=== PATIENT | female | born 1950 | race Caucasian/White ===

== ENCOUNTER 2016-11-02 15:52 | Inpatient (IN) ==
[2016-11-02] MEDS ORDERED: ACETAMINOPHEN 325 MG TABLET PO PRN (16:05)
[2016-11-02] MEDS ORDERED: DOCUSATE SODIUM 100 MG CAPSULE PO PRN (16:05)
[2016-11-02] MEDS ORDERED: ALBUTEROL/IPRATROPIUM 3 ML NEB RESP TX PRN (16:05)
[2016-11-02] MEDS ORDERED: BENZONATATE 100 MG CAPSULE PO PRN (16:12)
[2016-11-02] MEDS ORDERED: AMINOPHYLLINE 250 MG in SODIUM CHLORIDE 0.9% 100 ML IV ONE (16:12)
--- NOTE | 2016-11-02 16:24 | Pulmonology History & Physical ---
History of Present Illness Chief complaint: acute exacerbation of COPD wheezing SOB outpatient tx failure History of present illness: Donna Marquis, KAYLA-C acting as scribe for Dr. Jose Capone. Ms. Galindo is a 66 year old /White female who was admitted today 11/02/16 from the clinic for acute exacerbation of COPD, shortness of breath, severe wheezing that has been refractory to outpatient treatment. Patient [facility]16 for acute bronchitis exacerbation of COPD cough and wheezing treated with Prednisone and Bactrim DS. Presented back to clinic today to see [facility] with worsening shortness of breath, wheezing, cough, fever, and headaches. She was treated in the clinic with inhalation treatment with Duoneb and patient states has been taking medications as ordered but shortness of breath has gotten progressively worse. Due to her past medical history, severity of her symptoms and inadequate response to outpatient treatment decision was made to admit to inpatient for further evaluation and treatment. ROS: Admits shortness of breath, wheezing, cough, headaches, fever, fatigue, and chills. Denies blurred vision, vertigo/dizziness, cardiac chest pain, syncope, bleeding from any site, and evidence of TIAs. All other ROS is noncontributory. ALLERGIES: NO KNOWN DRUG ALLERGIES Home Medicines: Bactrim DS 800-160mg BID x 10 days, Klonopin 1mg BID PRN, Pepcid 40mg BID, Fenofibrate 160mg daily, Lipitor 40mg qhs, Lisinopril 20mg daily, SlowMag 1 tablet qhs, Norvasc 5mg daily, Prednisone 10mg taper, ProAir HFA 1 puff [id number] as needed, Prozac 40mg daily, Singulair 10mg daily, Tessalon Perles 1-2 capsules TID PRN, Trazodone 100mg qhs, Vitamin D3 1,000 unit daily. Past Medical History: COPD, bronchospastic airway disease, Hypertension, GERD, Chronic sinusitis, Colon polyps, diverticulosis, History of esophageal stricture requiring dilatation, Hiatal hernia, Degenerative joint disease, History of rheumatoid arthritis no longer being treated due to patient refusal of treatments previously has been treated with Methotrexate, low dose steroids, and Humira by Dr. Peña rheumatology, Anxiety, Insomnia, Depression, Obstructive sleep apnea with history of noncompliance with CPap. Past Surgical History: Bilateral cataract removal [place] [address] Campo, appendectomy, hysterectomy in 1983, EGD requiring dilatation, Colonoscopy. Social History: Previous smoker quit in 2010, . Family History: Mother had arthritis and COPD. Father had COPD/Asthma. [place] [facility] [place] normal pulmonary arteries are normal. Increased interstial markings in both bases no fluid or masses. Lab has been reviewed. [place] [facility] [place] WBC 15,500 without a left shift. These is likely related to recent prednisone use but cannot r/o bacterial infection at this time. EKG is pending. Home Medications Medication Instructions Recorded Confirmed Type Atorvastatin [Lipitor] 40 mg PO DAILY 08/01/15 09/06/16 History Lisinopril [Zestril] 20 mg PO DAILY 08/01/15 09/06/16 History Montelukast Tab [Singulair Tab] 1 tablet PO DAILY 08/01/15 09/06/16 History Zolpidem Tartrate [Ambien] 1 tablet PO BEDTIME 08/01/15 09/06/16 History amLODIPine [Norvasc] 1 tablet PO DAILY 08/01/15 09/06/16 History Albuterol Sulfate [Proair HFA] 2 puff INH Q4H PRN 09/06/16 09/06/16 History Cholecalciferol [Vitamin D3] 1,000 unit PO DAILY 09/06/16 09/06/16 History Famotidine 40 mg PO DAILY 09/06/16 09/06/16 History Fenofibrate [Tricor] 160 mg PO DAILY 09/06/16 09/06/16 History clonazePAM TAB [KlonoPIN] 0.5 mg PO BID 09/06/16 09/06/16 History Allergies Allergy/AdvReac Type Severity Reaction Status Date / Time No Known Allergies Allergy Verified 07/26/16 04:01 Medical,Surgical,& Family Hx - Medical History Cardio: History of: Hypertension Endocrine: History of: Dyslipidemia Respiratory: History of: COPD Gastrointestinal: History of: GERD - Surgical History Abdominal Surgeries: Surgical HX of: Appendectomy Reproductive Surgeries: Surgical HX of;: Hysterectomy - Family History Family History: Reports;: Family Hypertension (PARENTS BROTHER), Family Stroke ( DAD) - Social History Smoking Status: Former smoker Exam (Pulmonay) H&P - Constitutional Vitals: Wt 215.6lbs Ht 64in. BP 130/60 o2 sat 93% on room air HR 91 Temp 98.3. Exam: Psych: Oriented x 3; Mood is pleasant and cooperative at present time acutely ill appearing. HEENT: Pupils, irises, sclera, conjunctiva, and eyelids are normal. The face is symmetrical without rash or masses. Lips, tongue, buccal mucosa, soft and hard palates, and pharynx are WNL . Neck: Symmetrical. Thyroid was not palpated. Lymphatics: No submandibular, cervical, or supraclavicular adenopathy Chest: Chest is symmetrical with diffuse high pitched inspiratory and large airway and peripheral wheezes noted. No congestion or stridor. CV: Regular rate and rhythm without murmur or gallop. Arterial: Carotids with a good upstroke. There is no bruit. Upper extremity pulses are palpable. Posterior tibial pulses are palpable. Venous: Exam of the neck, upper, and lower extremities is normal no evidence to suggest deep venous thrombophlebitis. Abd: Abdominal obesity is present, no appreciable organomegaly, tenderness or bruits. Bowel sounds are positive 4. The aorta could not be palpated. /Rectal: Deferred Extremities: No clubbing, cyanosis, or edema. Skin: No cancerous or infectious lesions of the exposed, examined skin; the perineal area was not examined M/S: Mild age-appropriate loss of the normal curvature of the cervical, thoracic , and lumbar spine. Neurological: Cranial nerves are intact with decreased hearing acuity bilaterally. Long-term motor function is intact. Sensory exam was not done. Gait was not tested. The remainder of the exam was noncontributory. Impression: #1 Acute exacerbation of COPD refractory to outpatient treatment #2 Shortness of breath and wheezing not responsive to outpatient therapy. #3 Hypertension #4 Anxiety #5 GERD with history of esophageal stricture #6 See orders. Plan #1 Admit to inpatient for further evaluation and treatment #2 Aminophylline IV loading dose 250mg over 4 hours then at 10mg/hr weight based dosing done this came out to be 0.1mg/kg/hr. #3 Inhalation therapy with Duonebs QID and PRN with acapella, SoluMedrol IV, Merrem 500mg IV q8h, Singulair, Tessalon, and Mucinex as ordered. #4 ID and continue home meds. #5 Labs, EKG, and CXR as ordered. #6 See orders.
[2016-11-02] MEDS: methylPREDNISolone SOD SUC 40 MG/1 ML VIAL IV SCH (18:14)
[2016-11-02] MEDS: MEROPENEM 500 MG in SODIUM CHLORIDE 0.9% 100 ML IV SCH (18:14)
[2016-11-02] MEDS: ALBUTEROL/IPRATROPIUM 3 ML NEB RESP TX SCH (18:57)
[2016-11-02 19:04] LABS: Alanine Aminotransferase 31 U/L (13-56); Albumin 3.8 G/DL (3.4-5.0); Alkaline Phosphatase 91 U/L (45-117); Aspartate Amino Transferase 24 U/L (0-37); Bilirubin,Total < 0.39 MG/DL (0.2-1.0); Blood Urea Nitrogen 53 MG/DL (7-18); Calcium 10.1 MG/DL (8.5-10.1); Glucose 99 MG/DL (74-106); Osmolality,Calculated 277.5 MOS/KG (273-304); Potassium 5.1 MMOL/L (3.5-5.1); Sodium 132 MMOL/L (136-145); Total Protein 7.5 G/DL (6.4-8.3)
[2016-11-02] MEDS: MONTELUKAST 10 MG TABLET PO SCH (21:18)
[2016-11-02] MEDS: FLUoxetine 20 MG CAPSULE PO SCH (21:18)
[2016-11-02] MEDS: traZODone 50 MG TABLET PO SCH (21:18)
[2016-11-02] MEDS: ALBUTEROL 0.4 MG/ML 30 ML/BOTTLE PO SCH (21:18)
[2016-11-03] MEDS: AMINOPHYLLINE 500 MG in SODIUM CHLORIDE 0.9% 480 ML IV SCH (00:59)
[2016-11-03] MEDS: methylPREDNISolone SOD SUC 40 MG/1 ML VIAL IV SCH ×3 (02:03→15:32)
[2016-11-03] MEDS: MEROPENEM 500 MG in SODIUM CHLORIDE 0.9% 100 ML IV SCH ×3 (02:03→21:45)
[2016-11-03] MEDS: clonazePAM 0.5 MG TABLET PO PRN (02:04)
[2016-11-03 03:52] LABS: Apearance,Urine CLEAR (Clear); Bilirubin,Urine Negative (Negative); Blood, Urine Negative (Negative); Glucose,Urine (UA) Negative (Negative); Ketones,Urine Negative (Negative); Mucus,Urine Occasional /LPF (Occasional); Nitrite,Urine Negative (Negative); Protein,Urine Negative; Urine Color Straw (Yellow); Urine Specific Gravity 1.009 (1.001-1.035); Urine Urobilinogen < 2.0 EU/DL (0.2-1.0); WBC,Urine <1 /HPF (0-6)
[2016-11-03 05:24] LABS: Basophils % 0.2 % (0.0-0.8); Hematocrit 34.8 VOL% (35.7-47.0); Hemoglobin 11.4 GM/DL (12.0-16.0); Immature Granulocytes % 1.4 %; Immature Granulocytes Absolute 0.19 #; Lymphocytes % 14.6 % (21.3-54.2); Mean Corpuscular HGB Conc 32.8 GM/DL (32-36); Mean Corpuscular Hemoglobin 29 PG (27-34); Mean Corpuscular Volume 87.7 FL (87-102); Mean Platelet Volume 10.2 FL (9.6-12.0); Monocytes # 0.2 10*3/uL (0.11-0.8); Monocytes % 1.6 % (1.7-12.7); Neutrophils # 11.3 10*3/uL (1.4-7.4); Neutrophils % 82.2 % (38.7-73.9); Platelet Count 391 T/CUMM (130-400); Red Blood Count 3.97 MC/CUMM (3.8-5.5); Red Cell Distribution Width 13.9 % (9.3-17.3); White Blood Count 13.8 T/CUMM (4-12)
[2016-11-03 06:01] LABS: Calcium 9.1 MG/DL (8.5-10.1); Osmolality,Calculated 288.1 MOS/KG (273-304); Potassium 5.1 MMOL/L (3.5-5.1)
[2016-11-03] MEDS: ALBUTEROL 0.4 MG/ML 30 ML/BOTTLE PO SCH ×3 (07:30→21:54)
[2016-11-03] MEDS: ALBUTEROL/IPRATROPIUM 3 ML NEB RESP TX SCH ×4 (07:37→19:17)
--- NOTE | 2016-11-03 07:47 | XRay Report ---
XR chest 2V Indication: SOB Comparison: Chest x-ray dated September 06, 2016 Technique: Frontal and lateral views of the chest Findings: Cardiomediastinal silhouette is stable in configuration. Chronic change of the lungs without focal consolidation, pleural effusion, or pneumothorax. Osseous and surrounding soft tissue structures appear grossly unchanged. IMPRESSION: No acute cardiopulmonary process demonstrated. PROCEDURE INTERPRETED AT [facility] DEPARTMENT OF RADIOLOGY Final Report Signed by: Dr Parish España
[2016-11-03] MEDS: MONTELUKAST 10 MG TABLET PO SCH ×2 (08:35→21:54)
--- NOTE | 2016-11-03 10:54 | Pulmonology Progress Note ---
Pulmonary - PN: Subj Interval history: Obdulio Potter, ANP-BC, GNP-BC, acting as scribe for Dr. Jose Capone Ms. Galindo is a 66-year-old white female who was admitted 11/02/2016 from [facility]. At admission, our impressions were: #1 Acute exacerbation of COPD refractory to outpatient treatment #2 Shortness of breath and wheezing not responsive to outpatient therapy. #3 Hypertension #4 Anxiety #5 GERD with history of esophageal stricture #6 See past history 11/03/2016. Patient's chest x-ray shows no clear-cut infiltrate. She continues to have significant large airway wheeze and congestion. Her previously noted high-pitched peripheral wheezes have improved with the addition of IV Aminophyllin. Today's theophylline level is pending. We will get these daily. She is having difficulty mobilizing her secretions, so we have added Pulmozyme twice a day. Upon questioning, the patient has been experiencing significant reflux and often times up into her throat. She denies consistent solid dysphagia. She has a history of esophageal stricture which has required dilatation in the past and she feels that "it is time for it to be stretched again". We will consult Dr. Peña for consideration of EGD with probable dilatation. She has been placed on a strict antireflux regimen. Sputum Gram stain is pending. Cold agglutinins were negative. Legionella is pending. Medications have been reviewed. Labs been reviewed. White count is 13,800 with 82.2% segs; H&H 11.4/34.8; platelet count 391,000; creatinine 2.10, BUN 54, sodium 135, potassium 5.1, magnesium yesterday was 2.0; liver function tests were within normal limits; calcium 9.1, albumin 3.8, total protein 7.5; TSH and free T4 were normal at 1.330 and 1.09 respectively; urinalysis showed no evidence of infection Exam (Progress Note) - Constitutional Vitals: Period Temp Pulse Resp BP Sys/Aguirre Pulse Ox Last 24 Hr 97.7 F-98.3 F 75-85 16-19 105-137/58-67 94-98 Exam: Chest... See above Heart no gallop Abdomen is nontender and nondistended; bowel sounds are positive 4 Extremities with nothing to suggest acute deep venous thrombophlebitis Psychiatric oriented 3 Neurologic long-term motor function is intact Plan: Consult Dr. Peña as above. Strict antireflux regimen. Continue IV Aminophyllin with daily theophylline levels. Repeat chest x-ray in the morning. Start Pulmozyme twice daily. Daily BMP/magnesium. See orders. Results - Labs CBC & BMP: 11/03/16 05:15 11/03/16 05:15
--- NOTE | 2016-11-03 11:33 | Gastrointestinal Consult Note ---
<Carole Navarro - Last Filed: 11/03/16 11:28> Assessment and Plan (1) Dysphagia Status: Acute Assessment and plan: 11/03-history of esophageal stricture with dilation in the past now presenting with exacerbation of COPD and complaints of increasing reflux and dysphagia to solids and pills. Last known EGD 2004 with dilation. Will follow patient during this hospitalization and plan tentative EGD when respiratory status has improved prior to discharge. Plan an addendum to follow by Dr. Peña. Current Visit: Yes History of Present Illness Chief complaint: Dysphagia/reflux History of present illness: Ms. Galindo is a 66 year old female who was admitted to the hospital on yesterday for acute exacerbation of COPD. Patient is followed by Dr. Capone who manages her COPD. She was seen in clinic last week by KAYLA Larios, for acute bronchitis with onset of coughing and wheezing. She was treated outpatient with prednisone and Bactrim DS however she presented back to the clinic on yesterday with worsening of her symptoms as well as onset of fever. She was then admitted to the hospital for further workup. Patient has a prior history of esophageal stricture, hiatal hernia, GERD, hypertension, DJD, RA, and diverticulosis. She brought forth on admission that she has been having some difficulty with swallowing at times with pills and solids. She states this does not happen every time but it does occur randomly enough to be noticeable. She has a history of esophageal stricture with her last EGD according to our facility database in 2004 in which she had Natalia esophagitis , hiatal hernia and she was also dilated. She does not recall having endoscopy done elsewhere but feels like she has had a more recent dilation in the past. Her last colonoscopy of record was noted in 2006 with diverticulosis and a polyp (tubular adenoma). She denies any pain with swallowing. She also has a history of reflux which she states has not been very controlled with episodes of regurgitation especially at night. She was changed from Nexium a year ago to Pepcid and states this does not work very well. She denies any abdominal pain. Denies any melena or hematochezia. Denies any fever, chills, or weight loss outside of her recent URI. Home Medications Medication Instructions Recorded Confirmed Type Atorvastatin [Lipitor] 40 mg PO DAILY 08/01/15 11/02/16 History Lisinopril [Zestril] 20 mg PO DAILY 08/01/15 11/02/16 History Montelukast Tab [Singulair Tab] 1 tablet PO DAILY 08/01/15 11/02/16 History amLODIPine [Norvasc] 1 tablet PO DAILY 08/01/15 11/02/16 History Albuterol Sulfate [Proair HFA] 2 puff INH Q4H PRN 09/06/16 11/02/16 History Cholecalciferol [Vitamin D3] 1,000 unit PO DAILY 09/06/16 11/02/16 History Famotidine 40 mg PO BID 09/06/16 11/02/16 History Fenofibrate [Tricor] 160 mg PO DAILY 09/06/16 11/02/16 History Albuterol Sulfate [Ventolin HFA] 2 puffs PO Q6HR 11/02/16 11/02/16 History Fluoxetine HCl [Prozac] 40 mg PO DAILY 11/02/16 11/02/16 History Magnesium Chloride [Slow Mag] 1 tablet PO BEDTIME 11/02/16 11/02/16 History traZODone [Desyrel] 100 mg PO BEDTIME 11/02/16 11/02/16 History Allergies Allergy/AdvReac Type Severity Reaction Status Date / Time No Known Allergies Allergy Verified 07/26/16 04:01 Medical,Surgical,& Family Hx - Medical History Cardio: History of: Hypertension Psychological: No history of: Anxiety Disorders, ADHD, Behavior Problems, Bipolar Disorder, Depression, Previous Suicide Attempt, Psychiatric/Substance Abuse Tx, Schizophrenia Endocrine: History of: Dyslipidemia Respiratory: History of: COPD Gastrointestinal: History of: GERD - Surgical History Abdominal Surgeries: Surgical HX of: Appendectomy Reproductive Surgeries: Surgical HX of;: Hysterectomy Orthopedic Surgeries: Surgical HX of;: Total Knee Replacement (bilat) - Family History Family History: Reports;: Family Hypertension (PARENTS BROTHER), Family Stroke ( DAD) - Social History Smoking Status: Former smoker Frequency of Alcohol Use: None Type of Drug Use: None 12 point system: reviewed and no additional remarkable complaints except as stated - Constitutional Constitutional: Present: as per HPI - EENT Eyes: Present: as per HPI Ears: Present: as per HPI Nose, mouth and throat: Present: as per HPI, dysphagia - Cardiovascular Cardiovascular: Present: as per HPI - Respiratory Respiratory: Present: as per HPI, cough, dyspnea, wheezing - Gastrointestinal Gastrointestinal: Present: as per HPI, dyspepsia, dysphagia, heartburn - Genitourinary Genitourinary: Present: as per HPI - Musculoskeletal Musculoskeletal: Present: as per HPI, arthralgias - Neurological Neurological: Present: as per HPI - Psychiatric Psychiatric: Present: as per HPI - Endocrine Endocrine: Present: as per HPI - Hematologic/Lymphatic Hematologic/Lymphatic: Present: as per HPI Exam - Constitutional Vitals: Period Temp Pulse Resp BP Sys/Aguirre Pulse Ox Last 24 Hr 97.7 F-98.3 F 75-85 16-19 105-145/56-67 94-98 General appearance: normal weight, no acute distress - Head Head exam: Present: normal inspection, normocephalic - Eye Eye exam: Present: other (Lids and conjunctive are unremarkable). Absent: scleral icterus - ENT ENT exam: Present: normal exam, normal oropharynx - Neck Neck exam: Present: normal inspection - Respiratory Respiratory exam: Present: clear to auscultation bilaterally. Absent: rales, rhonchi, wheezes - Cardiovascular Cardiovascular exam: Present: regular rate and rhythm. Absent: diastolic murmur , JVD, systolic murmur - GI/Abdominal GI/Abdominal exam: Present: normal bowel sounds, soft. Absent: ascites, distended, mass, organomegaly, tenderness - Extremities Exam Extremities exam: Present: normal inspection, full ROM - Back Exam Back exam: Present: normal inspection - Neurological Exam Neurological exam: Present: alert, oriented X3 - Psychiatric Psychiatric exam: Present: normal affect, normal mood - Skin Skin exam: Present: normal color, warm, dry Results - Labs CBC & BMP: 11/03/16 05:15 11/03/16 05:15 Lab Results: I have reviewed the past 24 hour labs <Golden Peña - Last Filed: 11/03/16 17:55> History of Present Illness History of present illness: Ms. Galindo is a 66 year old female Exam - Constitutional Vitals: Period Temp Pulse Resp BP Sys/Aguirre Pulse Ox Last 24 Hr 97.7 F-99.1 F 75-85 16-19 105-145/56-67 94-99 Results - Labs CBC & BMP: 11/03/16 05:15 11/03/16 05:15
[2016-11-03] MEDS: DORNASE ALFA 2.5 MG/2.5 ML VIAL RESP TX SCH ×2 (11:41→19:11)
[2016-11-03] MEDS: BENZONATATE 100 MG CAPSULE PO SCH ×2 (15:23→21:53)
[2016-11-03] MEDS: traZODone 50 MG TABLET PO SCH (21:51)
[2016-11-03] MEDS: FLUoxetine 20 MG CAPSULE PO SCH (22:05)
[2016-11-04] MEDS: methylPREDNISolone SOD SUC 40 MG/1 ML VIAL IV SCH ×3 (00:51→17:12)
[2016-11-04] MEDS: ALBUTEROL 0.4 MG/ML 30 ML/BOTTLE PO SCH ×3 (06:43→21:35)
[2016-11-04] MEDS: AMINOPHYLLINE 500 MG in SODIUM CHLORIDE 0.9% 480 ML IV SCH ×2 (07:21→07:27)
[2016-11-04 07:30] LABS: Basophils % 0.1 % (0.0-0.8); Hematocrit 36.6 VOL% (35.7-47.0); Immature Granulocytes % 1.4 %; Immature Granulocytes Absolute 0.31 #; Lymphocytes # 1.7 10*3/uL (1.4-4.0); Lymphocytes % 7.7 % (21.3-54.2); Mean Corpuscular HGB Conc 32.8 GM/DL (32-36); Mean Corpuscular Hemoglobin 30 PG (27-34); Mean Corpuscular Volume 89.9 FL (87-102); Monocytes # 0.6 10*3/uL (0.11-0.8); Monocytes % 2.6 % (1.7-12.7); Neutrophils # 19.3 10*3/uL (1.4-7.4); Neutrophils % 88.2 % (38.7-73.9); Platelet Count 431 T/CUMM (130-400); Red Blood Count 4.07 MC/CUMM (3.8-5.5); Red Cell Distribution Width 14.4 % (9.3-17.3); White Blood Count 21.9 T/CUMM (4-12)
[2016-11-04] MEDS: ALBUTEROL/IPRATROPIUM 3 ML NEB RESP TX SCH ×3 (07:30→19:30)
[2016-11-04] MEDS: DORNASE ALFA 2.5 MG/2.5 ML VIAL RESP TX SCH ×2 (07:35→19:30)
[2016-11-04 07:58] LABS: Band Neutrophils 1 % (0-10); Hypochromasia 1+; Lymphocytes 7 % (20-55); Platelet Estimate Adequate; Segmented Neutrophils 89 % (50-85); Total Cells Counted 100
[2016-11-04 08:13] LABS: Calcium 9.1 MG/DL (8.5-10.1); Magnesium 2.3 MG/DL (1.8-2.4); Osmolality,Calculated 291.8 MOS/KG (273-304); Potassium 5.6 MMOL/L (3.5-5.1)
--- NOTE | 2016-11-04 08:59 | Gastrointestinal Progress Note ---
<Carole Navarro - Last Filed: 11/04/16 08:56> Assessment and Plan (1) Dysphagia Status: Acute Assessment and plan: 11/04-No changes at present in dysphagia, reports increased reflux symptoms. Start Protonix at this time. Plan and addendum to follow by DR Peña. 11/03-history of esophageal stricture with dilation in the past now presenting with exacerbation of COPD and complaints of increasing reflux and dysphagia to solids and pills. Last known EGD 2004 with dilation. Will follow patient during this hospitalization and plan tentative EGD when respiratory status has improved prior to discharge. Plan an addendum to follow by Dr. Peña. Current Visit: Yes Gastroenterology - PN: Subj Interval history: CC: Dysphagia Pt is seen, awake and alert sitting up in bed. States she is feeling some better today and feels like she has "turned the corner". She is still having some wheezing and coughing but states it is an improvement. She is tolerating her diet at present time. She is mostly complaining about increased reflux. She is taking nebulizer treatments which can aggrivate her symptoms. She is not on a PPI since admission. Will start her on Protonix at this time. Abdomen is soft , nontender. ROS: Denies SOB or chest pain at present time Exam (Progress Note) - Constitutional Vitals: Period Temp Pulse Resp BP Sys/Aguirre Pulse Ox Last 24 Hr 97.8 F-99.1 F 72-96 16-19 127-148/51-70 95-99 General appearance: normal weight, no acute distress - Head Head exam: Present: normal inspection, normocephalic - Eye Eye exam: Present: other (lids and conjunctiva unremarkable). Absent: scleral icterus - ENT ENT exam: Present: normal exam, normal oropharynx - Neck Neck exam: Present: normal inspection - Respiratory Respiratory exam: Present: clear to auscultation bilaterally. Absent: rales, rhonchi, wheezes - Cardiovascular Cardiovascular exam: Present: regular rate and rhythm. Absent: diastolic murmur , JVD, systolic murmur - GI/Abdominal GI/Abdominal exam: Present: normal bowel sounds, soft. Absent: ascites, distended, mass, organomegaly, tenderness - Extremities Exam Extremities exam: Present: normal inspection, full ROM - Back Exam Back exam: Present: normal inspection - Neurological Exam Neurological exam: Present: alert, oriented X3 - Psychiatric Psychiatric exam: Present: normal affect, normal mood - Skin Skin exam: Present: normal color, warm, dry Results - Labs CBC & BMP: 11/04/16 07:11 11/04/16 07:11 Lab Results: I have reviewed the past 24 hour labs <Golden Peña - Last Filed: 11/04/16 18:38> Exam (Progress Note) - Constitutional Vitals: Period Temp Pulse Resp BP Sys/Aguirre Pulse Ox Last 24 Hr 97.8 F-98.5 F 72-97 18-19 130-148/51-70 95-100 Results - Labs CBC & BMP: 11/04/16 07:11 11/04/16 07:11
--- NOTE | 2016-11-04 09:00 | XRay Report ---
Exam: XR chest 2V Date: 11/04/2016 4:00 AM Indication: COPD Comparison: 11/03/2016 Technical: PA lateral Findings: The heart, lungs, mediastinum and bony structures are intact. A neckless superimposes exam Impression: 1. No acute cardiopulmonary pathology PROCEDURE INTERPRETED AT [facility] DEPARTMENT OF RADIOLOGY Final Report Signed by: Dr. Jose Araujo
[2016-11-04] MEDS: BENZONATATE 100 MG CAPSULE PO SCH ×3 (09:51→21:34)
[2016-11-04] MEDS: MONTELUKAST 10 MG TABLET PO SCH ×2 (09:52→21:34)
[2016-11-04] MEDS: PANTOPRAZOLE 40 MG TABLET PO SCH (09:52)
[2016-11-04] MEDS: MEROPENEM 500 MG in SODIUM CHLORIDE 0.9% 100 ML IV SCH ×2 (09:55→21:37)
--- NOTE | 2016-11-04 10:06 | Pulmonology Progress Note ---
Pulmonary - PN: Subj Interval history: Obdulio Potter, ANP-BC, GNP-BC, acting as scribe for Dr. Jose Capone Ms. Galindo is a 66-year-old white female who was admitted 11/02/2016 from [facility]. At admission, our impressions were: #1 Acute exacerbation of COPD refractory to outpatient treatment #2 Shortness of breath and wheezing not responsive to outpatient therapy. #3 Hypertension #4 Anxiety #5 GERD with history of esophageal stricture #6 See past history 11/03/2016. Patient's chest x-ray shows no clear-cut infiltrate. She continues to have significant large airway wheeze and congestion. Her previously noted high-pitched peripheral wheezes have improved with the addition of IV Aminophyllin. Today's theophylline level is pending. We will get these daily. She is having difficulty mobilizing her secretions, so we have added Pulmozyme twice a day. Upon questioning, the patient has been experiencing significant reflux and often times up into her throat. She denies consistent solid dysphagia. She has a history of esophageal stricture which has required dilatation in the past and she feels that "it is time for it to be stretched again". We will consult Dr. Peña for consideration of EGD with probable dilatation. She has been placed on a strict antireflux regimen. Sputum Gram stain is pending. Cold agglutinins were negative. Legionella is pending. 11/04/16. The patient was seen along with a male family member, Silvano Galindo. She states that she feels her breathing is improved. She continues to have LAW wheezing, but it is certainly improved. There are no high pitched peripheral wheezes. She reports a headache and cervical strain. This is secondary to coughing. We will ask physical therapy to apply moist heat to her cervical spine twice daily. Theophylline level today is again 2.9. Will increase IV Aminophyllin 18 mg/h. She is getting daily theophylline levels. There is a significant amount of large airway congestion. We have asked the patient to be ambulatory and expectorate as much as possible. Chest x-ray is stable. She has been evaluated for possible EGD with Dr. Peña. He would like her respiratory status improved before proceeding with this and we certainly agree. Based on examination today, we have told her we will probably be Tuesday of next week before she is ready for discharge. Sputum Gram stain showed moderate gram-positive cocci in clusters, few gram- positive cocci in pairs and chains, and rare gram-negative rods. Sputum cultures pending. Medications have been reviewed. Increase Aminophyllin as above. Labs been reviewed. White count is 21,900 with 88.2% segs; H&H 12.0/36.6; platelet count 431,000; creatinine has improved to 1.70, BUN 54, sodium 137, potassium 5.6, magnesium 2.3; theophylline level 2.9 Exam (Progress Note) - Constitutional Vitals: Period Temp Pulse Resp BP Sys/Aguirre Pulse Ox Last 24 Hr 97.8 F-99.1 F 72-96 16-19 127-148/51-70 95-99 Exam: Chest... See above Heart no gallop Abdomen is nontender and nondistended; bowel sounds are positive 4 Extremities with nothing to suggest acute deep venous thrombophlebitis Psychiatric oriented 3 Neurologic long-term motor function is intact Plan: Increase IV Aminophyllin 80 mg/h. Continue daily theophylline levels. Moist heat to cervical spine twice daily. Repeat labs in the morning. See orders. Results - Labs CBC & BMP: 11/04/16 07:11 11/04/16 07:11
[2016-11-04] MEDS: traZODone 50 MG TABLET PO SCH (21:33)
[2016-11-04] MEDS: FLUoxetine 20 MG CAPSULE PO SCH (21:34)
[2016-11-05] MEDS: AMINOPHYLLINE 500 MG in SODIUM CHLORIDE 0.9% 480 ML IV SCH (00:51)
[2016-11-05] MEDS: methylPREDNISolone SOD SUC 40 MG/1 ML VIAL IV SCH ×3 (01:06→16:50)
[2016-11-05] MEDS: ALBUTEROL 0.4 MG/ML 30 ML/BOTTLE PO SCH ×2 (06:09→22:00)
[2016-11-05 06:42] LABS: Basophils % 0.1 % (0.0-0.8); Hematocrit 33.9 VOL% (35.7-47.0); Hemoglobin 11.2 GM/DL (12.0-16.0); Immature Granulocytes % 1.4 %; Immature Granulocytes Absolute 0.23 #; Lymphocytes # 1.3 10*3/uL (1.4-4.0); Lymphocytes % 7.9 % (21.3-54.2); Mean Corpuscular Hemoglobin 30 PG (27-34); Mean Corpuscular Volume 89.4 FL (87-102); Mean Platelet Volume 9.9 FL (9.6-12.0); Monocytes # 0.4 10*3/uL (0.11-0.8); Monocytes % 2.7 % (1.7-12.7); Neutrophils # 14.2 10*3/uL (1.4-7.4); Neutrophils % 87.9 % (38.7-73.9); Platelet Count 356 T/CUMM (130-400); Red Blood Count 3.79 MC/CUMM (3.8-5.5); Red Cell Distribution Width 14.6 % (9.3-17.3); White Blood Count 16.1 T/CUMM (4-12)
[2016-11-05] MEDS: ALBUTEROL/IPRATROPIUM 3 ML NEB RESP TX SCH ×4 (06:55→20:02)
[2016-11-05] MEDS: DORNASE ALFA 2.5 MG/2.5 ML VIAL RESP TX SCH ×2 (07:00→20:03)
[2016-11-05 07:12] LABS: Calcium 9.2 MG/DL (8.5-10.1); Magnesium 2.3 MG/DL (1.8-2.4); Osmolality,Calculated 290.5 MOS/KG (273-304); Potassium 5.4 MMOL/L (3.5-5.1)
[2016-11-05] MEDS: MEROPENEM 500 MG in SODIUM CHLORIDE 0.9% 100 ML IV SCH ×2 (08:53→21:43)
[2016-11-05] MEDS: PANTOPRAZOLE 40 MG TABLET PO SCH (08:56)
[2016-11-05] MEDS: BENZONATATE 100 MG CAPSULE PO SCH ×3 (08:56→22:01)
[2016-11-05] MEDS: MONTELUKAST 10 MG TABLET PO SCH ×2 (08:57→21:43)
--- NOTE | 2016-11-05 09:37 | Gastrointestinal Progress Note ---
<Carole Navarro - Last Filed: 11/05/16 09:35> Assessment and Plan (1) Dysphagia Status: Acute Assessment and plan: 11/05-no changes at present time. Respiratory status slowly improving. Start nystatin swish and swallow for oral discomfort/erythema. Plan for EGD on Tuesday if patient continues to improve and respiratory status is stable. Plan an addendum to follow by Dr. Peña 11/04-No changes at present in dysphagia, reports increased reflux symptoms. Start Protonix at this time. Plan and addendum to follow by DR Peña. 11/03-history of esophageal stricture with dilation in the past now presenting with exacerbation of COPD and complaints of increasing reflux and dysphagia to solids and pills. Last known EGD 2004 with dilation. Will follow patient during this hospitalization and plan tentative EGD when respiratory status has improved prior to discharge. Plan an addendum to follow by Dr. Peña. Current Visit: Yes Gastroenterology - PN: Subj Interval history: CC: Dysphagia Patient is seen awake and alert ambulating around room. States she is feeling some better today and that her breathing has improved more since yesterday. Tolerating her diet at this time. She is complaining of some mouth pain and noted to have some oral erythema and possible small tiny ulcerations developing on the inside of her mouth. She states she did not have this prior to admission and feels like it could be related to her breathing treatments or antibiotics. Abdomen soft, nontender. We will tentatively plan at this time to proceed with EGD on Tuesday if patient's breathing continues to improve over the weekend and she is stable. We will also order some nystatin mouthwash for the oral discomfort. ROS: Denies shortness of breath or chest pain Exam (Progress Note) - Constitutional Vitals: Period Temp Pulse Resp BP Sys/Aguirre Pulse Ox Last 24 Hr 97.0 F-98.6 F 75-97 16-19 120-157/59-89 92-100 General appearance: normal weight, no acute distress - Head Head exam: Present: normal inspection, normocephalic - Eye Eye exam: Present: other (Lids and conjunctivae). Absent: scleral icterus - ENT ENT exam: Present: normal exam - Neck Neck exam: Present: normal inspection - Respiratory Respiratory exam: Present: clear to auscultation bilaterally. Absent: rales, rhonchi, wheezes - Cardiovascular Cardiovascular exam: Present: regular rate and rhythm. Absent: diastolic murmur , JVD, systolic murmur - GI/Abdominal GI/Abdominal exam: Present: normal bowel sounds, soft. Absent: ascites, distended, mass, organomegaly, tenderness - Extremities Exam Extremities exam: Present: normal inspection, full ROM - Back Exam Back exam: Present: normal inspection - Neurological Exam Neurological exam: Present: alert, oriented X3 - Psychiatric Psychiatric exam: Present: normal affect, normal mood - Skin Skin exam: Present: normal color, warm, dry Results - Labs CBC & BMP: 11/05/16 06:16 11/05/16 06:16 Lab Results: I have reviewed the past 24 hour labs <Golden Peña - Last Filed: 11/05/16 14:07> Exam (Progress Note) - Constitutional Vitals: Period Temp Pulse Resp BP Sys/Aguirre Pulse Ox Last 24 Hr 97.0 F-98.6 F 74-97 16-20 120-157/59-89 92-99 Results - Labs CBC & BMP: 11/05/16 06:16 11/05/16 06:16
[2016-11-05] MEDS: hydroCHLOROthiazide 12.5 MG CAPSULE PO SCH (11:20)
[2016-11-05] MEDS: FLUCONAZOLE 100 MG TABLET PO SCH (11:20)
--- NOTE | 2016-11-05 11:49 | Pulmonology Progress Note ---
Pulmonary - PN: Subj Interval history: Obdulio Potter, ANP-BC, GNP-BC, acting as scribe for Dr. Jose Capone Ms. Galindo is a 66-year-old white female who was [facility]. At admission, our impressions were: #1 Acute exacerbation of COPD refractory to outpatient treatment #2 Shortness of breath and wheezing not responsive to outpatient therapy. #3 Hypertension #4 Anxiety #5 GERD with history of esophageal stricture #6 See past history 11/03/2016. Patient's chest x-ray shows no clear-cut infiltrate. She continues to have significant large airway wheeze and congestion. Her previously noted high-pitched peripheral wheezes have improved with the addition of IV Aminophyllin. Today's theophylline level is pending. We will get these daily. She is having difficulty mobilizing her secretions, so we have added Pulmozyme twice a day. Upon questioning, the patient has been experiencing significant reflux and often times up into her throat. She denies consistent solid dysphagia. She has a history of esophageal stricture which has required dilatation in the past and she feels that "it is time for it to be stretched again". We will consult Dr. Peña for consideration of EGD with probable dilatation. She has been placed on a strict antireflux regimen. Sputum Gram stain is pending. Cold agglutinins were negative. Legionella is pending. 11/04/16. The patient was seen along with a male family member, Silvano Galindo. She states that she feels her breathing is improved. She continues to have LAW wheezing, but it is certainly improved. There are no high pitched peripheral wheezes. She reports a headache and cervical strain. This is secondary to coughing. We will ask physical therapy to apply moist heat to her cervical spine twice daily. Theophylline level today is again 2.9. Will increase IV Aminophyllin 18 mg/h. She is getting daily theophylline levels. There is a significant amount of large airway congestion. We have asked the patient to be ambulatory and expectorate as much as possible. Chest x-ray is stable. She has been evaluated for possible EGD with Dr. Peña. He would like her respiratory status improved before proceeding with this and we certainly agree. Based on examination today, we have told her we will probably be Tuesday of next week before she is ready for discharge. Sputum Gram stain showed moderate gram-positive cocci in clusters, few gram- positive cocci in pairs and chains, and rare gram-negative rods. Sputum cultures pending. 11/04/2016. The patient was seen today along with a female family member and Karin Armas RN. She continues to do well. On chest exam, however, she continues to have high-pitched peripheral wheezes at the end of expiration more prominent in the bases. She is on IV Aminophyllin and we will increase her dose to 24 mgL/h. Theophylline level today is 5.0. She is getting daily theophylline levels. She complains of oral ulcers. On evaluation, patient has oral candidiasis. Will start Magic mouthwash as needed and Diflucan daily. She has hypernatremia. Review of medications does not show an obvious culprit. Will start hydrochlorothiazide 12.5 mg daily. She is being evaluated for possible EGD on Tuesday by Dr. Peña. Medications have been reviewed. Labs been reviewed. White count is 16,100 with 87.9% segs; H&H 11.2/33.9; platelet count 356,000; creatinine 1.40, BUN 43, sodium 139, potassium 5.4, magnesium 2.3; theophylline level 5.0 Exam (Progress Note) - Constitutional Vitals: Period Temp Pulse Resp BP Sys/Aguirre Pulse Ox Last 24 Hr 97.0 F-98.6 F 74-97 16-20 120-157/59-89 92-100 Exam: Chest... See above Heart no gallop Abdomen is nontender and nondistended; bowel sounds are positive 4 Extremities with nothing to suggest acute deep venous thrombophlebitis Psychiatric oriented 3 Neurologic long-term motor function is intact Plan: Increase IV Aminophyllin 24 mg/h. Continue daily theophylline levels. Diflucan. Magic mouthwash. Hydrochlorothiazide. See orders. Results - Labs CBC & BMP: 11/05/16 06:16 11/05/16 06:16
[2016-11-05] MEDS: NYSTATIN 500,000 UNIT/5 ML UDCUP SWISH/SWAL SCH ×3 (13:06→21:43)
[2016-11-05] MEDS: FLUoxetine 20 MG CAPSULE PO SCH (21:43)
[2016-11-05] MEDS: traZODone 50 MG TABLET PO SCH (21:44)
[2016-11-05] MEDS: MYLANTA/LIDO VISC 2:1 300 ML BOTTLE SWISH/SPIT PRN (22:00)
[2016-11-06] MEDS: methylPREDNISolone SOD SUC 40 MG/1 ML VIAL IV SCH ×4 (00:32→23:40)
[2016-11-06] MEDS: ALBUTEROL/IPRATROPIUM 3 ML NEB RESP TX SCH ×4 (08:31→15:50)
[2016-11-06] MEDS: DORNASE ALFA 2.5 MG/2.5 ML VIAL RESP TX SCH ×2 (08:32→19:33)
[2016-11-06] MEDS: AMINOPHYLLINE 500 MG in SODIUM CHLORIDE 0.9% 480 ML IV SCH ×3 (09:48→23:43)
[2016-11-06] MEDS: FLUCONAZOLE 100 MG TABLET PO SCH (09:51)
[2016-11-06] MEDS: MONTELUKAST 10 MG TABLET PO SCH ×2 (09:51→21:17)
[2016-11-06] MEDS: PANTOPRAZOLE 40 MG TABLET PO SCH (09:51)
[2016-11-06] MEDS: BENZONATATE 100 MG CAPSULE PO SCH ×3 (09:51→21:17)
[2016-11-06] MEDS: hydroCHLOROthiazide 12.5 MG CAPSULE PO SCH (09:51)
[2016-11-06] MEDS: NYSTATIN 500,000 UNIT/5 ML UDCUP SWISH/SWAL SCH ×4 (09:57→21:23)
[2016-11-06] MEDS: ALBUTEROL 0.4 MG/ML 30 ML/BOTTLE PO SCH ×3 (10:02→12:59)
[2016-11-06] MEDS: MEROPENEM 500 MG in SODIUM CHLORIDE 0.9% 100 ML IV SCH ×2 (10:03→21:18)
--- NOTE | 2016-11-06 18:46 | Pulmonology Progress Note ---
Pulmonary - PN: Subj Interval history: 66-year-old female admitted for COPD exacerbation. Patient did well overnight without acute issues. She admits to slow continued improvement over her hospitalization. No new concerns today. Exam (Progress Note) - Constitutional Vitals: Period Temp Pulse Resp BP Sys/Aguirre Pulse Ox Last 24 Hr 97.7 F-98.8 F 76-93 16-20 119-170/65-80 93-100 General appearance: over weight - Head Head exam: Present: normal inspection - Eye Eye exam: Present: EOMI Pupils: Present: ANDREAS - Neck Neck exam: Present: normal inspection - Respiratory Respiratory exam: Present: rhonchi, wheezes. Absent: accessory muscle use - Cardiovascular Cardiovascular exam: Present: regular rate and rhythm - GI/Abdominal GI/Abdominal exam: Present: normal bowel sounds, soft. Absent: tenderness - Extremities Exam Extremities exam: Present: normal inspection. Absent: edema - Neurological Exam Neurological exam: Present: alert, oriented X3 - Psychiatric Psychiatric exam: Present: normal affect, normal mood - Skin Skin exam: Present: warm, dry Results - Labs CBC & BMP: 11/05/16 06:16 11/05/16 06:16 Assessment and Plan (1) COPD exacerbation Status: Acute Assessment and plan: 66-year-old female admitted with COPD exacerbation who has had slow continued improvement over the course of her hospital stay with steroids, bronchodilators , and antibiotics. Continue current management. Current Visit: No (2) Dysphagia Status: Acute Assessment and plan: GI plans for EGD on Tuesday for further evaluation. N.p.o. after midnight tomorrow. Current Visit: Yes
[2016-11-06] MEDS ORDERED: LEVALBUTEROL 1.25 MG/3 ML NEB RESP TX PRN (18:50)
[2016-11-06] MEDS: LEVALBUTEROL 1.25 MG/3 ML NEB RESP TX SCH (19:21)
[2016-11-06] MEDS: IPRATROPIUM 500 MCG/2.5 ML NEB RESP TX SCH (19:21)
[2016-11-06] MEDS: traZODone 50 MG TABLET PO SCH (21:16)
[2016-11-06] MEDS: FLUoxetine 20 MG CAPSULE PO SCH (21:17)
[2016-11-06] MEDS: MYLANTA/LIDO VISC 2:1 300 ML BOTTLE SWISH/SPIT PRN (21:18)
[2016-11-06] MEDS: diphenhydrAMINE CAP 25 MG CAPSULE PO PRN (23:40)
[2016-11-07] MEDS: LEVALBUTEROL 1.25 MG/3 ML NEB RESP TX SCH ×4 (01:37→19:45)
[2016-11-07] MEDS: IPRATROPIUM 500 MCG/2.5 ML NEB RESP TX SCH ×4 (01:37→19:39)
[2016-11-07] MEDS: AMINOPHYLLINE 500 MG in SODIUM CHLORIDE 0.9% 480 ML IV SCH (05:53)
[2016-11-07 07:07] LABS: Basophils % 0.1 % (0.0-0.8); Hematocrit 37.6 VOL% (35.7-47.0); Hemoglobin 12.2 GM/DL (12.0-16.0); Immature Granulocytes % 2.7 %; Immature Granulocytes Absolute 0.37 #; Lymphocytes # 1.5 10*3/uL (1.4-4.0); Lymphocytes % 10.7 % (21.3-54.2); Mean Corpuscular HGB Conc 32.4 GM/DL (32-36); Mean Corpuscular Hemoglobin 29 PG (27-34); Mean Corpuscular Volume 88.1 FL (87-102); Mean Platelet Volume 9.7 FL (9.6-12.0); Monocytes # 0.7 10*3/uL (0.11-0.8); Neutrophils % 81.5 % (38.7-73.9); Platelet Count 426 T/CUMM (130-400); Red Blood Count 4.27 MC/CUMM (3.8-5.5); Red Cell Distribution Width 14.4 % (9.3-17.3); White Blood Count 13.5 T/CUMM (4-12)
[2016-11-07 07:36] LABS: Calcium 9.1 MG/DL (8.5-10.1); Magnesium 2.3 MG/DL (1.8-2.4); Osmolality,Calculated 282.8 MOS/KG (273-304); Potassium 4.6 MMOL/L (3.5-5.1)
[2016-11-07] MEDS: DORNASE ALFA 2.5 MG/2.5 ML VIAL RESP TX SCH ×2 (08:03→19:50)
[2016-11-07] MEDS: BENZONATATE 100 MG CAPSULE PO SCH ×3 (09:03→22:14)
[2016-11-07] MEDS: NYSTATIN 500,000 UNIT/5 ML UDCUP SWISH/SWAL SCH ×4 (09:03→22:15)
[2016-11-07] MEDS: PANTOPRAZOLE 40 MG TABLET PO SCH (09:03)
[2016-11-07] MEDS: FLUCONAZOLE 100 MG TABLET PO SCH (09:04)
[2016-11-07] MEDS: MEROPENEM 500 MG in SODIUM CHLORIDE 0.9% 100 ML IV SCH ×2 (09:04→22:08)
[2016-11-07] MEDS: methylPREDNISolone SOD SUC 40 MG/1 ML VIAL IV SCH ×2 (09:04→16:18)
[2016-11-07] MEDS: MONTELUKAST 10 MG TABLET PO SCH ×2 (09:04→22:15)
[2016-11-07] MEDS: hydroCHLOROthiazide 12.5 MG CAPSULE PO SCH (09:05)
--- NOTE | 2016-11-07 17:46 | Pulmonology Progress Note ---
Pulmonary - PN: Subj Interval history: 66-year-old female admitted for COPD exacerbation. Patient did well overnight without acute issues. She admits to slow continued improvement over her hospitalization. Her main residual complaint today is of chronic cough. She admits to associated postnasal drip as well as reflux, for which she will be undergoing EGD tomorrow. Exam (Progress Note) - Constitutional Vitals: Period Temp Pulse Resp BP Sys/Aguirre Pulse Ox Last 24 Hr 97.0 F-98.3 F 76-92 16-25 158-173/64-86 95-99 General appearance: over weight - Head Head exam: Present: normal inspection - Eye Eye exam: Present: EOMI Pupils: Present: ANDREAS - Neck Neck exam: Present: normal inspection - Respiratory Respiratory exam: Present: clear to auscultation bilaterally. Absent: rales, rhonchi, wheezes - Cardiovascular Cardiovascular exam: Present: regular rate and rhythm - GI/Abdominal GI/Abdominal exam: Present: normal bowel sounds, soft. Absent: tenderness - Extremities Exam Extremities exam: Present: normal inspection - Neurological Exam Neurological exam: Present: alert, oriented X3 - Psychiatric Psychiatric exam: Present: normal affect, normal mood - Skin Skin exam: Present: warm, dry Results - Labs CBC & BMP: 11/07/16 06:57 11/07/16 06:57 Assessment and Plan (1) COPD exacerbation Status: Acute Assessment and plan: 66-year-old female admitted with COPD exacerbation who has had slow continued improvement over the course of her hospital stay with steroids, bronchodilators , and antibiotics. Continue current management. Current Visit: No (2) Dysphagia Status: Acute Assessment and plan: GI plans for EGD on Tuesday for further evaluation. N.p.o. after midnight tonight. Current Visit: Yes (3) Post-nasal drip Status: Acute Assessment and plan: Likely also contributing to her chronic cough. Will start her on Flonase and Zyrtec. Current Visit: Yes
[2016-11-07] MEDS: FLUoxetine 20 MG CAPSULE PO SCH (22:12)
[2016-11-07] MEDS: CETIRIZINE 10 MG TABLET PO SCH (22:13)
[2016-11-07] MEDS: traZODone 50 MG TABLET PO SCH (22:14)
[2016-11-07] MEDS: diphenhydrAMINE CAP 25 MG CAPSULE PO PRN (22:15)
[2016-11-07] MEDS: FLUTICASONE 50 MCG NASAL SPRAY 16 GM BOTTLE BOTH NARES SCH (22:16)
[2016-11-08] MEDS: IPRATROPIUM 500 MCG/2.5 ML NEB RESP TX SCH ×4 (00:36→19:13)
[2016-11-08] MEDS: LEVALBUTEROL 1.25 MG/3 ML NEB RESP TX SCH ×4 (00:36→19:13)
[2016-11-08] MEDS: methylPREDNISolone SOD SUC 40 MG/1 ML VIAL IV SCH ×3 (00:42→17:33)
[2016-11-08] MEDS: AMINOPHYLLINE 500 MG in SODIUM CHLORIDE 0.9% 480 ML IV SCH ×2 (01:19→23:43)
[2016-11-08] MEDS: DORNASE ALFA 2.5 MG/2.5 ML VIAL RESP TX SCH ×2 (07:31→19:13)
[2016-11-08 07:50] LABS: Calcium 9.2 MG/DL (8.5-10.1); Magnesium 2.2 MG/DL (1.8-2.4); Osmolality,Calculated 287.5 MOS/KG (273-304); Potassium 4.6 MMOL/L (3.5-5.1)
[2016-11-08] MEDS: MEROPENEM 500 MG in SODIUM CHLORIDE 0.9% 100 ML IV SCH ×2 (08:28→20:31)
[2016-11-08 08:41] LABS: Basophils % 0.1 % (0.0-0.8); Hematocrit 38.3 VOL% (35.7-47.0); Hemoglobin 12.9 GM/DL (12.0-16.0); Immature Granulocytes % 2.4 %; Immature Granulocytes Absolute 0.37 #; Lymphocytes # 1.6 10*3/uL (1.4-4.0); Lymphocytes % 10.4 % (21.3-54.2); Mean Corpuscular HGB Conc 33.7 GM/DL (32-36); Mean Corpuscular Hemoglobin 30 PG (27-34); Mean Platelet Volume 9.6 FL (9.6-12.0); Monocytes # 0.9 10*3/uL (0.11-0.8); Monocytes % 5.9 % (1.7-12.7); NRBC # 0.03 10*3/uL; Neutrophils # 12.4 10*3/uL (1.4-7.4); Neutrophils % 81.2 % (38.7-73.9); Platelet Count 422 T/CUMM (130-400); Red Blood Count 4.35 MC/CUMM (3.8-5.5); White Blood Count 15.3 T/CUMM (4-12)
[2016-11-08] MEDS ORDERED: LIDOCAINE 1% 5 ML VIAL ONE (10:53)
[2016-11-08] MEDS ORDERED: PROPOFOL 200 MG/20 ML VIAL IV ONE (10:53)
--- NOTE | 2016-11-08 11:06 | History and Physical Update ---
History and Physical Update - Physical Exam Mental Status: alert and oriented Heart: regular rate and rhythm Lung: clear to auscultation Abdomen: within normal limits Vitals: within normal limits
--- NOTE | 2016-11-08 11:09 | Operative Note ---
Date of procedure: 11/08/16 Pre-op diagnosis: Dysphagia Procedure: EGD with biopsy and esophageal dilatation 66-year-old female with complaints of dysphagia now for upper endoscopy to further evaluate. She has had COPD about expansion which is improved. Informed several times the patient She was sedated with MAC anesthesia per anesthesia protocol. Patient was placed in left lateral decubitus position the Olympus flexible video upper endoscope was inserted into the oral cavity under direct vision the esophagus intubated. Findings: Esophagus-normal proximal mid esophageal mucosa distal esophagus small hiatal hernia with one column of suspect Rodriguez's change from approximately 36 cm to 38 cm. Biopsies were taken. There is an associated distal esophageal stricture. Stomach-normal insufflation normal mucosa to direct retroflexed views of the body, fundus, cardia and antrum the stomach. Pylorus-normal Duodenum-normal bulb duodenum to the third portion of the duodenum. The scope was removed subsequently a 54 [place] was passed Brown was passed without difficulty. No significant resistant no blood was present on the dilator postdilatation. Patient our procedure well she is discharged recovery in good condition Postop diagnosis: 1. Gastroesophageal reflux disease-continue PPI treatment antireflux precautions 2. Continue PPI treatment. 3. 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 And no dysplasia will need a repeat endoscopy in 18 months. Anesthesia: MAC Surgeon / Physician: Golden Peña Estimated blood loss: none Specimens: none sent Condition: stable Disposition: post procedure unit Results - Labs CBC & BMP: 11/08/16 08:27 11/08/16 06:58 Discharge Plan - Discharge Medications No Action Atorvastatin [Lipitor] 40 mg PO DAILY amLODIPine [Norvasc] 1 tablet PO DAILY Lisinopril [Zestril] 20 mg PO DAILY Montelukast Tab [Singulair Tab] 1 tablet PO DAILY Famotidine 40 mg PO BID Fenofibrate [Tricor] 160 mg PO DAILY Cholecalciferol [Vitamin D3] 1,000 unit PO DAILY Fluoxetine HCl [Prozac] 40 mg PO DAILY traZODone [Desyrel] 100 mg PO BEDTIME Albuterol Sulfate [Ventolin HFA] 2 puffs PO Q6HR Albuterol Sulfate [Proair HFA] 2 puff INH Q4H PRN PRN Reason: Shortness Of Breath/Wheezing Magnesium Chloride [Slow Mag] 1 tablet PO BEDTIME - Follow Up or Referral - Forms/Instructions
--- NOTE | 2016-11-08 11:26 | Anesthesia Post-Op ---
Anesthesia Post OP - Post Ansesthetic Evaluation Patient seen in post op: Yes Resp: within normal limits CV: within normal limits Mental: within normal limits Temp: within normal limits [id number]: within normal limits Nausea and Vomiting: within normal limits Pain: within normal limits
--- NOTE | 2016-11-08 11:30 | Pulmonology Progress Note ---
Pulmonary - PN: Subj Interval history: Obdulio Potter, ANP-BC, GNP-BC, acting as scribe for Dr. Jose Capone Ms. Galindo is a 66-year-old white female who was admitted 11/02/2016 from [facility]. At admission, our impressions were: #1 Acute exacerbation of COPD refractory to outpatient treatment #2 Shortness of breath and wheezing not responsive to outpatient therapy. #3 Hypertension #4 Anxiety #5 GERD with history of esophageal stricture #6 See past history 11/03/2016. Patient's chest x-ray shows no clear-cut infiltrate. She continues to have significant large airway wheeze and congestion. Her previously noted high-pitched peripheral wheezes have improved with the addition of IV Aminophyllin. Today's theophylline level is pending. We will get these daily. She is having difficulty mobilizing her secretions, so we have added Pulmozyme twice a day. Upon questioning, the patient has been experiencing significant reflux and often times up into her throat. She denies consistent solid dysphagia. She has a history of esophageal stricture which has required dilatation in the past and she feels that "it is time for it to be stretched again". We will consult Dr. Peña for consideration of EGD with probable dilatation. She has been placed on a strict antireflux regimen. Sputum Gram stain is pending. Cold agglutinins were negative. Legionella is pending. 11/04/16. The patient was seen along with a male family member, Silvano Galindo. She states that she feels her breathing is improved. She continues to have LAW wheezing, but it is certainly improved. There are no high pitched peripheral wheezes. She reports a headache and cervical strain. This is secondary to coughing. We will ask physical therapy to apply moist heat to her cervical spine twice daily. Theophylline level today is again 2.9. Will increase IV Aminophyllin 18 mg/h. She is getting daily theophylline levels. There is a significant amount of large airway congestion. We have asked the patient to be ambulatory and expectorate as much as possible. Chest x-ray is stable. She has been evaluated for possible EGD with Dr. Peña. He would like her respiratory status improved before proceeding with this and we certainly agree. Based on examination today, we have told her we will probably be Tuesday of next week before she is ready for discharge. Sputum Gram stain showed moderate gram-positive cocci in clusters, few gram- positive cocci in pairs and chains, and rare gram-negative rods. Sputum cultures pending. 11/05/2016. The patient was seen today along with a female family member and Karin Armas RN. She continues to do well. On chest exam, however, she continues to have high-pitched peripheral wheezes at the end of expiration more prominent in the bases. She is on IV Aminophyllin and we will increase her dose to 24 mgL/h. Theophylline level today is 5.0. She is getting daily theophylline levels. She complains of oral ulcers. On evaluation, patient has oral candidiasis. Will start Magic mouthwash as needed and Diflucan daily. She has hypernatremia. Review of medications does not show an obvious culprit. Will start hydrochlorothiazide 12.5 mg daily. She is being evaluated for possible EGD on Tuesday by Dr. Peña. 11/08/2016. The patient was seen today while in the GI suite undergoing EGD. This was discussed with Dr. Peña. EGD showed gastroesophageal reflux disease and possible Rodriguez's esophagitis. Biopsies were taken and are pending. Dr. Peña recommended continuing PPI treatment and antireflux precautions. There was a distal esophageal stricture which was dilated. Medications have been reviewed. We made no changes today. Labs been reviewed. White count is 15,300 with 81.2% segs; H&H 12.9/38.3; platelet count 422,000; creatinine 1.30, BUN 33, electrolytes are normal; theophylline level 7.2 Exam (Progress Note) - Constitutional Vitals: Period Temp Pulse Resp BP Sys/Aguirre Pulse Ox Last 24 Hr 96.2 F-98.5 F 81-96 14-20 138-191/67-97 93-99 Exam: Chest with markedly less wheeze Heart no gallop Abdomen is nontender and nondistended; bowel sounds are positive 4 Extremities with nothing to suggest acute deep venous thrombophlebitis Psychiatric/neurologic unable to be determined presently secondary to sedation for EGD Plan: Follow-up biopsy results when available. Continue present treatment. If she does well the remainder of today and tomorrow morning, it is possible she could be ready for discharge tomorrow. Results - Labs CBC & BMP: 11/08/16 08:27 11/08/16 06:58
[2016-11-08] MEDS: hydroCHLOROthiazide 12.5 MG CAPSULE PO SCH (13:03)
[2016-11-08] MEDS: NYSTATIN 500,000 UNIT/5 ML UDCUP SWISH/SWAL SCH ×4 (13:03→20:32)
[2016-11-08] MEDS: PANTOPRAZOLE 40 MG TABLET PO SCH (13:04)
[2016-11-08] MEDS: CETIRIZINE 10 MG TABLET PO SCH (13:04)
[2016-11-08] MEDS: BENZONATATE 100 MG CAPSULE PO SCH ×3 (13:04→20:32)
[2016-11-08] MEDS: MONTELUKAST 10 MG TABLET PO SCH ×2 (13:04→20:32)
[2016-11-08] MEDS: FLUTICASONE 50 MCG NASAL SPRAY 16 GM BOTTLE BOTH NARES SCH (13:04)
[2016-11-08] MEDS: FLUCONAZOLE 100 MG TABLET PO SCH (13:04)
[2016-11-08] MEDS: traZODone 50 MG TABLET PO SCH (20:32)
[2016-11-08] MEDS: clonazePAM 0.5 MG TABLET PO PRN (20:32)
[2016-11-08] MEDS: FLUoxetine 20 MG CAPSULE PO SCH (20:32)
[2016-11-09] MEDS: IPRATROPIUM 500 MCG/2.5 ML NEB RESP TX SCH ×2 (00:34→07:19)
[2016-11-09] MEDS: LEVALBUTEROL 1.25 MG/3 ML NEB RESP TX SCH ×2 (00:34→07:19)
[2016-11-09] MEDS: methylPREDNISolone SOD SUC 40 MG/1 ML VIAL IV SCH ×3 (01:20→16:52)
[2016-11-09] MEDS: DORNASE ALFA 2.5 MG/2.5 ML VIAL RESP TX SCH ×2 (07:19→19:23)
--- NOTE | 2016-11-09 08:55 | Gastrointestinal Progress Note ---
<Carole Navarro - Last Filed: 11/09/16 08:53> Assessment and Plan (1) Dysphagia Status: Acute Assessment and plan: 11/09-dysphagia improved post dilation on yesterday. Esophageal biopsy pending. Plan an addendum to follow by Dr. Peña. 11/05-no changes at present time. Respiratory status slowly improving. Start nystatin swish and swallow for oral discomfort/erythema. Plan for EGD on Tuesday if patient continues to improve and respiratory status is stable. Plan an addendum to follow by Dr. Peña 11/04-No changes at present in dysphagia, reports increased reflux symptoms. Start Protonix at this time. Plan and addendum to follow by DR Peña. 11/03-history of esophageal stricture with dilation in the past now presenting with exacerbation of COPD and complaints of increasing reflux and dysphagia to solids and pills. Last known EGD 2004 with dilation. Will follow patient during this hospitalization and plan tentative EGD when respiratory status has improved prior to discharge. Plan an addendum to follow by Dr. Peña. Current Visit: Yes Gastroenterology - PN: Subj Interval history: CC: Dysphagia Patient is seen awake alert sitting on edge of bed. She states that post EGD she is swallowing better and has very good appetite at this time. She is complaining of some increased cough overnight as well as slight difficulty in feeling like she is getting her breath today. She is in no acute distress at present time. She is noted to have oxygen saturations in the mid to high 90s. Abdomen soft, nontender. Pathology report pending from esophageal biopsy yesterday. ROS: Denies shortness of breath or chest pain Exam (Progress Note) - Constitutional Vitals: Period Temp Pulse Resp BP Sys/Aguirre Pulse Ox Last 24 Hr 97.7 F-98.7 F 75-108 14-22 121-164/55-88 91-99 General appearance: normal weight, no acute distress - Head Head exam: Present: normal inspection, normocephalic - Eye Eye exam: Present: other (Lids and conjunctive are unremarkable). Absent: scleral icterus - ENT ENT exam: Present: normal exam, normal oropharynx - Neck Neck exam: Present: normal inspection - Respiratory Respiratory exam: Present: clear to auscultation bilaterally. Absent: rales, rhonchi, wheezes - Cardiovascular Cardiovascular exam: Present: regular rate and rhythm. Absent: diastolic murmur , JVD, systolic murmur - GI/Abdominal GI/Abdominal exam: Present: normal bowel sounds, soft. Absent: ascites, distended, mass, organomegaly, tenderness - Extremities Exam Extremities exam: Present: normal inspection, full ROM - Back Exam Back exam: Present: normal inspection - Neurological Exam Neurological exam: Present: alert, oriented X3 - Psychiatric Psychiatric exam: Present: normal affect, normal mood - Skin Skin exam: Present: normal color, warm, dry Results - Labs CBC & BMP: 11/08/16 08:27 11/08/16 06:58 Lab Results: I have reviewed the past 24 hour labs <Golden Peña - Last Filed: 11/09/16 11:22> Exam (Progress Note) - Constitutional Vitals: Period Temp Pulse Resp BP Sys/Aguirre Pulse Ox Last 24 Hr 97.7 F-98.7 F 75-108 14-22 121-164/55-81 91-99 Results - Labs CBC & BMP: 11/08/16 08:27 11/08/16 06:58
[2016-11-09] MEDS: BENZONATATE 100 MG CAPSULE PO SCH ×3 (09:42→20:08)
[2016-11-09] MEDS: MEROPENEM 500 MG in SODIUM CHLORIDE 0.9% 100 ML IV SCH ×2 (09:42→20:07)
[2016-11-09] MEDS: FLUTICASONE 50 MCG NASAL SPRAY 16 GM BOTTLE BOTH NARES SCH (09:43)
[2016-11-09] MEDS: NYSTATIN 500,000 UNIT/5 ML UDCUP SWISH/SWAL SCH ×4 (09:43→20:07)
[2016-11-09] MEDS: CETIRIZINE 10 MG TABLET PO SCH (09:43)
[2016-11-09] MEDS: FLUCONAZOLE 100 MG TABLET PO SCH (09:43)
[2016-11-09] MEDS: MONTELUKAST 10 MG TABLET PO SCH ×2 (09:43→20:08)
[2016-11-09] MEDS: hydroCHLOROthiazide 12.5 MG CAPSULE PO SCH (09:43)
[2016-11-09] MEDS: PANTOPRAZOLE 40 MG TABLET PO SCH (09:43)
[2016-11-09] MEDS ORDERED: ALBUTEROL/IPRATROPIUM 3 ML NEB RESP TX PRN (10:56)
--- NOTE | 2016-11-09 11:07 | Pulmonology Progress Note ---
Pulmonary - PN: Subj Interval history: Obdulio Potter, ANP-BC, GNP-BC, acting as scribe for Dr. Jose Capone Ms. Galindo is a 66-year-old white female who was [facility]. At admission, our impressions were: #1 Acute exacerbation of COPD refractory to outpatient treatment #2 Shortness of breath and wheezing not responsive to outpatient therapy. #3 Hypertension #4 Anxiety #5 GERD with history of esophageal stricture #6 See past history 11/03/2016. Patient's chest x-ray shows no clear-cut infiltrate. She continues to have significant large airway wheeze and congestion. Her previously noted high-pitched peripheral wheezes have improved with the addition of IV Aminophyllin. Today's theophylline level is pending. We will get these daily. She is having difficulty mobilizing her secretions, so we have added Pulmozyme twice a day. Upon questioning, the patient has been experiencing significant reflux and often times up into her throat. She denies consistent solid dysphagia. She has a history of esophageal stricture which has required dilatation in the past and she feels that "it is time for it to be stretched again". We will consult Dr. Peña for consideration of EGD with probable dilatation. She has been placed on a strict antireflux regimen. Sputum Gram stain is pending. Cold agglutinins were negative. Legionella is pending. 11/04/16. The patient was seen along with a male family member, Silvano Galindo. She states that she feels her breathing is improved. She continues to have LAW wheezing, but it is certainly improved. There are no high pitched peripheral wheezes. She reports a headache and cervical strain. This is secondary to coughing. We will ask physical therapy to apply moist heat to her cervical spine twice daily. Theophylline level today is again 2.9. Will increase IV Aminophyllin 18 mg/h. She is getting daily theophylline levels. There is a significant amount of large airway congestion. We have asked the patient to be ambulatory and expectorate as much as possible. Chest x-ray is stable. She has been evaluated for possible EGD with Dr. Peña. He would like her respiratory status improved before proceeding with this and we certainly agree. Based on examination today, we have told her we will probably be Tuesday of next week before she is ready for discharge. Sputum Gram stain showed moderate gram-positive cocci in clusters, few gram- positive cocci in pairs and chains, and rare gram-negative rods. Sputum cultures pending. 11/05/2016. The patient was seen today along with a female family member and Karin Armas RN. She continues to do well. On chest exam, however, she continues to have high-pitched peripheral wheezes at the end of expiration more prominent in the bases. She is on IV Aminophyllin and we will increase her dose to 24 mgL/h. Theophylline level today is 5.0. She is getting daily theophylline levels. She complains of oral ulcers. On evaluation, patient has oral candidiasis. Will start Magic mouthwash as needed and Diflucan daily. She has hypernatremia. Review of medications does not show an obvious culprit. Will start hydrochlorothiazide 12.5 mg daily. She is being evaluated for possible EGD on Tuesday by Dr. Peña. 11/08/2016. The patient was seen today while in the GI suite undergoing EGD. This was discussed with Dr. Peña. EGD showed gastroesophageal reflux disease and possible Rodriguez's esophagitis. Biopsies were taken and are pending. Dr. Peña recommended continuing PPI treatment and antireflux precautions. There was a distal esophageal stricture which was dilated. 11/09/16. The patient has more increased shortness of breath and wheezing today. There are both high pitched peripheral and LAW wheezes present. On review of her medications, her liquid Albuterol and Duonebs were discontinued some time this past weekend. We have restarted these medications as she has obviously digressed. She underwent EGD yesterday by Dr. Peña. See above and his event note for more information. Biopsy pathology is pending. She continues to complain of "a raw tongue". She previously request magic mouthwash for this and it was ordered along with Diflucan. We will continue the mouthwash, but stop the Diflucan and start Mycelex troches. Theophylline level was not done today, but yesterday's level was 7.2. Given her amount of wheezing, we will increase this to 28mg/hour. Daily theophylline levels have been reordered. Medications have been reviewed. Labs been reviewed. No new labs were drawn today. Blood cultures are negative at day 5. Cold agglutinins and Legionella were both negative. Sputum culture grew no organisms. Exam (Progress Note) - Constitutional Vitals: Period Temp Pulse Resp BP Sys/Aguirre Pulse Ox Last 24 Hr 97.7 F-98.7 F 75-108 14-22 121-164/55-81 91-99 Exam: Chest...see above Heart no gallop Abdomen is nontender and nondistended; bowel sounds are positive 4 Extremities with nothing to suggest acute deep venous thrombophlebitis Psychiatric oriented x 3 Neurologic long tract motor function is intact Plan: Follow-up biopsy results when available. Daily theophylline level. Increase Theophylline to 28mg/hour. Stop Xopenex and Atrovent neb treatments and restart Duonebs QID and PRN. Restart liquid Albuterol 1mg PO Q8H. See orders. She has digressed from a pulmonary standpoint and, therefore, is not safe for discharge today. Results - Labs CBC & BMP: 11/08/16 08:27 11/08/16 06:58
[2016-11-09] MEDS: AMINOPHYLLINE 500 MG in SODIUM CHLORIDE 0.9% 480 ML IV SCH ×3 (11:52→22:01)
[2016-11-09] MEDS: ALBUTEROL/IPRATROPIUM 3 ML NEB RESP TX SCH ×2 (13:31→19:23)
[2016-11-09] MEDS: ALBUTEROL 0.4 MG/ML 30 ML/BOTTLE PO SCH ×3 (14:31→22:00)
[2016-11-09] MEDS: CLOTRIMAZOLE 10 MG TROCHE PO SCH ×3 (14:41→22:00)
[2016-11-09] MEDS: traZODone 50 MG TABLET PO SCH (20:08)
[2016-11-09] MEDS: FLUoxetine 20 MG CAPSULE PO SCH (20:08)
[2016-11-10] MEDS: ALBUTEROL/IPRATROPIUM 3 ML NEB RESP TX SCH ×4 (00:35→19:01)
[2016-11-10] MEDS: methylPREDNISolone SOD SUC 40 MG/1 ML VIAL IV SCH ×3 (00:56→16:08)
[2016-11-10] MEDS: diphenhydrAMINE CAP 25 MG CAPSULE PO PRN ×2 (00:57→21:26)
[2016-11-10] MEDS: MYLANTA/LIDO VISC 2:1 300 ML BOTTLE SWISH/SPIT PRN ×2 (00:58→22:00)
[2016-11-10] MEDS: CLOTRIMAZOLE 10 MG TROCHE PO SCH ×5 (05:59→22:03)
[2016-11-10] MEDS: ALBUTEROL 0.4 MG/ML 30 ML/BOTTLE PO SCH ×3 (06:00→22:06)
[2016-11-10] MEDS: DORNASE ALFA 2.5 MG/2.5 ML VIAL RESP TX SCH ×2 (08:28→19:01)
--- NOTE | 2016-11-10 08:46 | Gastrointestinal Progress Note ---
<Carole Navarro - Last Filed: 11/10/16 08:37> Assessment and Plan (1) Dysphagia Status: Acute Assessment and plan: 11/10-No c/o of dysphagia, tolerating diet well. Biopsy results noted to be negative for H. pylori or Barretts. . Plan and addendum to follow by Dr Peña. 11/09-dysphagia improved post dilation on yesterday. Esophageal biopsy pending. Plan an addendum to follow by Dr. Peña. 11/05-no changes at present time. Respiratory status slowly improving. Start nystatin swish and swallow for oral discomfort/erythema. Plan for EGD on Tuesday if patient continues to improve and respiratory status is stable. Plan an addendum to follow by Dr. Peña 11/04-No changes at present in dysphagia, reports increased reflux symptoms. Start Protonix at this time. Plan and addendum to follow by DR Peña. 11/03-history of esophageal stricture with dilation in the past now presenting with exacerbation of COPD and complaints of increasing reflux and dysphagia to solids and pills. Last known EGD 2004 with dilation. Will follow patient during this hospitalization and plan tentative EGD when respiratory status has improved prior to discharge. Plan an addendum to follow by Dr. Peña. Current Visit: Yes Gastroenterology - PN: Subj Interval history: CC: Dysphagia Pt is seen awake and alert sitting up in bed. States she is feeling much better today. She denies any dysphagia. She has a very good appetite and is tolerating her diet well. Biopsy results returned negative for H. pylori and negative for Barretts metaplasia. She denies any abdominal pain, nausea or vomiting. She states her breathing is much more improved and feels she is ready to go home now. Abdomen is soft, nontender ROS: Denies SOB or chest pain Exam (Progress Note) - Constitutional Vitals: Period Temp Pulse Resp BP Sys/Aguirre Pulse Ox Last 24 Hr 97.2 F-98.8 F 60-103 14-20 129-151/53-81 95-100 General appearance: normal weight, no acute distress - Head Head exam: Present: normal inspection, normocephalic - Eye Eye exam: Present: other (lids and conjunctiva unremarakable). Absent: scleral icterus - ENT ENT exam: Present: normal exam, normal oropharynx - Neck Neck exam: Present: normal inspection - Respiratory Respiratory exam: Present: clear to auscultation bilaterally. Absent: rales, rhonchi, wheezes - Cardiovascular Cardiovascular exam: Present: regular rate and rhythm. Absent: diastolic murmur , JVD, systolic murmur - GI/Abdominal GI/Abdominal exam: Present: normal bowel sounds, soft. Absent: ascites, distended, mass, organomegaly, tenderness - Extremities Exam Extremities exam: Present: normal inspection, full ROM - Back Exam Back exam: Present: normal inspection - Neurological Exam Neurological exam: Present: alert, oriented X3 - Psychiatric Psychiatric exam: Present: normal affect, normal mood - Skin Skin exam: Present: normal color, warm, dry Results - Labs CBC & BMP: 11/08/16 08:27 11/08/16 06:58 Lab Results: I have reviewed the past 24 hour labs <Golden Peña - Last Filed: 11/10/16 17:54> Exam (Progress Note) - Constitutional Vitals: Period Temp Pulse Resp BP Sys/Aguirre Pulse Ox Last 24 Hr 97.2 F-98.8 F 74-103 14-20 129-167/53-81 94-100 Results - Labs CBC & BMP: 11/08/16 08:27 11/08/16 06:58
[2016-11-10] MEDS: NYSTATIN 500,000 UNIT/5 ML UDCUP SWISH/SWAL SCH ×4 (09:16→21:24)
[2016-11-10] MEDS: BENZONATATE 100 MG CAPSULE PO SCH ×3 (09:16→21:26)
[2016-11-10] MEDS: PANTOPRAZOLE 40 MG TABLET PO SCH (09:17)
[2016-11-10] MEDS: CETIRIZINE 10 MG TABLET PO SCH (09:17)
[2016-11-10] MEDS: MONTELUKAST 10 MG TABLET PO SCH ×2 (09:17→21:26)
[2016-11-10] MEDS: FLUTICASONE 50 MCG NASAL SPRAY 16 GM BOTTLE BOTH NARES SCH (09:17)
[2016-11-10] MEDS: hydroCHLOROthiazide 12.5 MG CAPSULE PO SCH (09:17)
[2016-11-10] MEDS: MEROPENEM 500 MG in SODIUM CHLORIDE 0.9% 100 ML IV SCH ×2 (09:17→21:24)
--- NOTE | 2016-11-10 12:07 | Pulmonology Progress Note ---
Pulmonary - PN: Subj Interval history: Obdulio Potter, ANP-BC, GNP-BC, acting as scribe for Dr. Jose Capone Ms. Galindo is a 66-year-old white female who was admitted 11/02/2016 [facility]. At admission, our impressions were: #1 Acute exacerbation of COPD refractory to outpatient treatment #2 Shortness of breath and wheezing not responsive to outpatient therapy. #3 Hypertension #4 Anxiety #5 GERD with history of esophageal stricture #6 See past history 11/03/2016. Patient's chest x-ray shows no clear-cut infiltrate. She continues to have significant large airway wheeze and congestion. Her previously noted high-pitched peripheral wheezes have improved with the addition of IV Aminophyllin. Today's theophylline level is pending. We will get these daily. She is having difficulty mobilizing her secretions, so we have added Pulmozyme twice a day. Upon questioning, the patient has been experiencing significant reflux and often times up into her throat. She denies consistent solid dysphagia. She has a history of esophageal stricture which has required dilatation in the past and she feels that "it is time for it to be stretched again". We will consult Dr. Peña for consideration of EGD with probable dilatation. She has been placed on a strict antireflux regimen. Sputum Gram stain is pending. Cold agglutinins were negative. Legionella is pending. 11/04/16. The patient was seen along with a male family member, Silvano Galindo. She states that she feels her breathing is improved. She continues to have LAW wheezing, but it is certainly improved. There are no high pitched peripheral wheezes. She reports a headache and cervical strain. This is secondary to coughing. We will ask physical therapy to apply moist heat to her cervical spine twice daily. Theophylline level today is again 2.9. Will increase IV Aminophyllin 18 mg/h. She is getting daily theophylline levels. There is a significant amount of large airway congestion. We have asked the patient to be ambulatory and expectorate as much as possible. Chest x-ray is stable. She has been evaluated for possible EGD with Dr. Peña. He would like her respiratory status improved before proceeding with this and we certainly agree. Based on examination today, we have told her we will probably be Tuesday of next week before she is ready for discharge. Sputum Gram stain showed moderate gram-positive cocci in clusters, few gram- positive cocci in pairs and chains, and rare gram-negative rods. Sputum cultures pending. 11/05/2016. The patient was seen today along with a female family member and Karin Armas RN. She continues to do well. On chest exam, however, she continues to have high-pitched peripheral wheezes at the end of expiration more prominent in the bases. She is on IV Aminophyllin and we will increase her dose to 24 mgL/h. Theophylline level today is 5.0. She is getting daily theophylline levels. She complains of oral ulcers. On evaluation, patient has oral candidiasis. Will start Magic mouthwash as needed and Diflucan daily. She has hypernatremia. Review of medications does not show an obvious culprit. Will start hydrochlorothiazide 12.5 mg daily. She is being evaluated for possible EGD on Tuesday by Dr. Peña. 11/08/2016. The patient was seen today while in the GI suite undergoing EGD. This was discussed with Dr. Peña. EGD showed gastroesophageal reflux disease and possible Rodriguez's esophagitis. Biopsies were taken and are pending. Dr. Peña recommended continuing PPI treatment and antireflux precautions. There was a distal esophageal stricture which was dilated. 11/09/16. The patient has more increased shortness of breath and wheezing today. There are both high pitched peripheral and LAW wheezes present. On review of her medications, her liquid Albuterol and Duonebs were discontinued some time this past weekend. We have restarted these medications as she has obviously digressed. She underwent EGD yesterday by Dr. Peña. See above and his event note for more information. Biopsy pathology is pending. She continues to complain of "a raw tongue". She previously request magic mouthwash for this and it was ordered along with Diflucan. We will continue the mouthwash, but stop the Diflucan and start Mycelex troches. Theophylline level was not done today, but yesterday's level was 7.2. Given her amount of wheezing, we will increase this to 28mg/hour. Daily theophylline levels have been reordered. 11/10/16. The patient was seen today along with Payton Grover RN. Yesterday we restarted her liquid Albuterol, Duonebs breathing treatments, and increased the IV Aminophylline to 28mg/hr. See above. She is markedly improved today. She states she feels like a new person. We will continue these, but convert the Aminophyllilne to oral Theophylline at 300mg PO BID. EGD biopsies showed no H. pylori or Rodriguez's. Medications have been reviewed. Labs been reviewed. Blood cultures are negative at day 5. Cold agglutinins and Legionella were both negative. Sputum culture grew no organisms. Exam (Progress Note) - Constitutional Vitals: Period Temp Pulse Resp BP Sys/Aguirre Pulse Ox Last 24 Hr 97.2 F-98.8 F 60-103 14-20 129-166/53-81 94-100 Exam: Chest with markedly less wheeze; mild expiratory wheeze Heart no gallop Abdomen is nontender and nondistended; bowel sounds are positive 4 Extremities with nothing to suggest acute deep venous thrombophlebitis Psychiatric oriented x 3 Neurologic long tract motor function is intact Plan: Continue present treatment. Stop IV aminophylline and start oral Theophylline at 300mg PO BID. If she does well the remainder of today and tomorrow, she should be ready for discharge home tomorrow. Results - Labs CBC & BMP: 11/08/16 08:27 11/08/16 06:58
[2016-11-10] MEDS: THEOPHYLLINE ER 300 MG TABLET PO SCH (16:08)
[2016-11-10] MEDS: AMINOPHYLLINE 500 MG in SODIUM CHLORIDE 0.9% 480 ML IV SCH (16:15)
[2016-11-10] MEDS: traZODone 50 MG TABLET PO SCH (21:26)
[2016-11-10] MEDS: clonazePAM 0.5 MG TABLET PO PRN (21:26)
[2016-11-10] MEDS: FLUoxetine 20 MG CAPSULE PO SCH (21:26)
[2016-11-11] MEDS: ALBUTEROL/IPRATROPIUM 3 ML NEB RESP TX SCH ×2 (00:04→08:59)
[2016-11-11] MEDS: methylPREDNISolone SOD SUC 40 MG/1 ML VIAL IV SCH ×2 (02:05→09:23)
[2016-11-11] MEDS: ALBUTEROL 0.4 MG/ML 30 ML/BOTTLE PO SCH (06:59)
[2016-11-11] MEDS: CLOTRIMAZOLE 10 MG TROCHE PO SCH ×2 (06:59→09:24)
[2016-11-11] MEDS: DORNASE ALFA 2.5 MG/2.5 ML VIAL RESP TX SCH (08:59)
[2016-11-11] MEDS: CETIRIZINE 10 MG TABLET PO SCH (09:23)
[2016-11-11] MEDS: BENZONATATE 100 MG CAPSULE PO SCH (09:23)
[2016-11-11] MEDS: MONTELUKAST 10 MG TABLET PO SCH (09:23)
[2016-11-11] MEDS: MEROPENEM 500 MG in SODIUM CHLORIDE 0.9% 100 ML IV SCH (09:23)
[2016-11-11] MEDS: THEOPHYLLINE ER 300 MG TABLET PO SCH (09:23)
[2016-11-11] MEDS: NYSTATIN 500,000 UNIT/5 ML UDCUP SWISH/SWAL SCH (09:24)
[2016-11-11] MEDS: FLUTICASONE 50 MCG NASAL SPRAY 16 GM BOTTLE BOTH NARES SCH (09:24)
[2016-11-11] MEDS: hydroCHLOROthiazide 12.5 MG CAPSULE PO SCH (09:24)
[2016-11-11] MEDS: PANTOPRAZOLE 40 MG TABLET PO SCH (09:24)
--- NOTE | 2016-11-11 09:51 | Pulmonology Progress Note ---
Pulmonary - PN: Subj Interval history: Obdulio Potter, ANP-BC, GNP-BC, acting as scribe for Dr. Jose Capone Ms. Galindo is a 66-year-old white female who was admitted 11/02/2016 from [facility]. At admission, our impressions were: #1 Acute exacerbation of COPD refractory to outpatient treatment #2 Shortness of breath and wheezing not responsive to outpatient therapy. #3 Hypertension #4 Anxiety #5 GERD with history of esophageal stricture #6 See past history 11/03/2016. Patient's chest x-ray shows no clear-cut infiltrate. She continues to have significant large airway wheeze and congestion. Her previously noted high-pitched peripheral wheezes have improved with the addition of IV Aminophyllin. Today's theophylline level is pending. We will get these daily. She is having difficulty mobilizing her secretions, so we have added Pulmozyme twice a day. Upon questioning, the patient has been experiencing significant reflux and often times up into her throat. She denies consistent solid dysphagia. She has a history of esophageal stricture which has required dilatation in the past and she feels that "it is time for it to be stretched again". We will consult Dr. Peña for consideration of EGD with probable dilatation. She has been placed on a strict antireflux regimen. Sputum Gram stain is pending. Cold agglutinins were negative. Legionella is pending. 11/04/16. The patient was seen along with a male family member, Silvano Galindo. She states that she feels her breathing is improved. She continues to have LAW wheezing, but it is certainly improved. There are no high pitched peripheral wheezes. She reports a headache and cervical strain. This is secondary to coughing. We will ask physical therapy to apply moist heat to her cervical spine twice daily. Theophylline level today is again 2.9. Will increase IV Aminophyllin 18 mg/h. She is getting daily theophylline levels. There is a significant amount of large airway congestion. We have asked the patient to be ambulatory and expectorate as much as possible. Chest x-ray is stable. She has been evaluated for possible EGD with Dr. Peña. He would like her respiratory status improved before proceeding with this and we certainly agree. Based on examination today, we have told her we will probably be Tuesday of next week before she is ready for discharge. Sputum Gram stain showed moderate gram-positive cocci in clusters, few gram- positive cocci in pairs and chains, and rare gram-negative rods. Sputum cultures pending. 11/05/2016. The patient was seen today along with a female family member and Karin Armas RN. She continues to do well. On chest exam, however, she continues to have high-pitched peripheral wheezes at the end of expiration more prominent in the bases. She is on IV Aminophyllin and we will increase her dose to 24 mgL/h. Theophylline level today is 5.0. She is getting daily theophylline levels. She complains of oral ulcers. On evaluation, patient has oral candidiasis. Will start Magic mouthwash as needed and Diflucan daily. She has hypernatremia. Review of medications does not show an obvious culprit. Will start hydrochlorothiazide 12.5 mg daily. She is being evaluated for possible EGD on Tuesday by Dr. Peña. 11/08/2016. The patient was seen today while in the GI suite undergoing EGD. This was discussed with Dr. Peña. EGD showed gastroesophageal reflux disease and possible Rodriguez's esophagitis. Biopsies were taken and are pending. Dr. Peña recommended continuing PPI treatment and antireflux precautions. There was a distal esophageal stricture which was dilated. 11/09/16. The patient has more increased shortness of breath and wheezing today. There are both high pitched peripheral and LAW wheezes present. On review of her medications, her liquid Albuterol and Duonebs were discontinued some time this past weekend. We have restarted these medications as she has obviously digressed. She underwent EGD yesterday by Dr. Peña. See above and his event note for more information. Biopsy pathology is pending. She continues to complain of "a raw tongue". She previously request magic mouthwash for this and it was ordered along with Diflucan. We will continue the mouthwash, but stop the Diflucan and start Mycelex troches. Theophylline level was not done today, but yesterday's level was 7.2. Given her amount of wheezing, we will increase this to 28mg/hour. Daily theophylline levels have been reordered. 11/10/16. The patient was seen today along with Payton Grover RN. Yesterday we restarted her liquid Albuterol, Duonebs breathing treatments, and increased the IV Aminophylline to 28mg/hr. See above. She is markedly improved today. She states she feels like a new person. We will continue these, but convert the Aminophyllilne to oral Theophylline at 300mg PO BID. EGD biopsies showed no H. pylori or Rodriguez's. 11/11/16. The patient is doing very well this morning. She is 100% wheeze free. She states that she feels very good and absolutely states she is ready for discharge. She is eating well. She has no cough. We will adjust some of her home medications on discharge. Medications have been reviewed. Labs been reviewed. Theophylline level is 9.7 Blood cultures are negative at day 5. Cold agglutinins and Legionella were both negative. Sputum culture grew no organisms. Exam (Progress Note) - Constitutional Vitals: Period Temp Pulse Resp BP Sys/Aguirre Pulse Ox Last 24 Hr 97.6 F-98.8 F 76-90 16-20 141-167/61-76 94-99 Exam: Chest is 100% wheeze free Heart no gallop Abdomen is nontender and nondistended; bowel sounds are positive 4 Extremities with nothing to suggest acute deep venous thrombophlebitis Psychiatric oriented x 3 Neurologic long tract motor function is intact Plan: She has now met maximum hospital benefit and will be discharged home today. Please see the discharge note for more information. Results - Labs CBC & BMP: 11/08/16 08:27 11/08/16 06:58
--- NOTE | 2016-11-11 09:52 | Discharge Summary ---
Hospital Course - Hospital Course Hospital Course: Obdulio Potter, ANP-BC, GNP-BC, acting as scribe for Dr. Jose Capone Ms. Galindo is a 66 year old /White female who was admitted today 11/02/16 [facility] for acute exacerbation of COPD, shortness of breath, severe wheezing that has been refractory to outpatient treatment. Patient was seen by [facility] on 10/28/16 for acute bronchitis, exacerbation of COPD, cough, and wheezing. She was treated with Prednisone and Bactrim DS. Presented back to clinic the day of admission to see [facility] with worsening shortness of breath, wheezing, cough, fever, and headaches. She was treated at [facility] with inhalation treatment with Duoneb and the patient states had been taking medications as ordered but the shortness of breath had gotten progressively worse. Due to her past medical history, severity of her symptoms and inadequate response to outpatient treatment, decision was made to admit to inpatient for further evaluation and treatment. She was admitted and started on IV Merrem. She was also started on IV Aminophyllin, Solu-Medrol, Singulair, and liquid albuterol. Over time, her wheezes completely resolved. The weekend prior to discharge, the patient's liquid albuterol and DuoNeb's had been stopped. She again developed significant large airway and high-pitched peripheral wheezes. Increased IV Aminophyllin and restarted with albuterol and DuoNeb's. At the time of discharge, the patient is 100% wheeze free. She continued to have significant cough with reflux and solid dysphagia. She was seen in consultation by Dr. Peña. EGD was done by Dr. Peña on 2016. This showed gastroesophageal reflux disease, small hiatal hernia with one column of suspected Rodriguez's change, and a distal esophageal stricture. Biopsies were taken and the report showed fragmented esophageal squamous mucosa with epithelial hyperplasia/chronic esophagitis, detached gastric cardia type mucosa negative for Rodriguez's metaplasia, and no H pylori on special stains. Sputum Gram stain showed moderate gram-positive cocci in clusters, few gram- positive cocci in pairs and chains, and rare gram-negative rods. Sputum culture grew no organisms. Blood cultures were negative. Cold agglutinins and Legionella were both negative. For more information regarding Ms. Galindo past medical history, surgical history, social history, family history, admit labs, admit x-rays and admit exam , please see the admission note dated 11/02/2016. Impression: #1 Acute exacerbation of COPD refractory to outpatient treatment; secondary to gram-positive cocci and/or gram-negative rods #2 Shortness of breath and wheezing not responsive to outpatient therapy; secondary to #1 #3 Hypertension #4 Anxiety #5 GERD with distal esophageal stricture requiring EGD with dilatation this admission by Dr. Peña #6 See past history Plan: Prednisone 10 mg every morning and 10 mg daily at approximately 1300, Norvasc 5 mg daily, ipratropium nebulized 4 times daily and as needed, albuterol nebulized 4 times daily and as needed, Stiolto to 2 puffs daily, albuterol 1 mg every 8 hours, Tessalon 200 mg 3 times daily as needed cough, Zyrtec 10 mg daily, Mycelex troches 1 dissolved in the mouth 5 times daily for 3 more days, Prozac 40 mg at bedtime, Flonase 2 sprays in each nostril daily, Mucinex 600 mg twice daily, hydrochlorothiazide 12.5 mg daily, Singulair 10 mg twice daily, Protonix 40 mg daily, theophylline 300 mg twice daily, Ventolin HFA 2 puffs 4 times daily as needed, Vistaril 100 mg at bedtime, Slow-Mag 64 mg at bedtime, vitamin D3 1000 units daily, Lipitor 40 mg daily, and TriCor 160 mg daily. She will be scheduled to follow-up with Donna Marquis, nurse practitioner, with regard to her pulmonary status approximately 2-3 weeks with a theophylline level. She will continue her routine care with Lilly Richard, nurse practitioner. She can be seen sooner if needed. Note, at admission the patient's Zestril was held. We did not restart it at discharge. Specialty Discharge - Follow Up or Referrals Follow up with: Donna Marquis CFNP [Advanced Practice Nurse] - (2-3 weeks with Theophylline level ) Discharge Plan - Discharge Data Disposition: Disch To Home/Self Care Condition at Discharge: Stable - Discharge Medications New Albuterol Liquid [Proventil Liquid] 1 mg PO Q8HR #225 mls Benzonatate [Tessalon] 200 mg PO TID PRN #30 capsule PRN Reason: Cough Cetirizine Tab [ZyrTEC Tab] 10 mg PO DAILY tablet Fluticasone 50 Mcg Nasal [place] [Flonase Nasal [place]] 2 spray BOTH NARES DAILY #1 spray Montelukast Tab [Singulair Tab] 10 mg PO BID #60 tablet Theophylline ER Tab 300 mg PO BID W/MEALS #60 tablet Tiotropium Br/Olodaterol HCl [Stiolto Respimat Inhal [place]] 4 gm IH DAILY #1 mist.inhal guaiFENesin ER TAB [Mucinex] 600 mg PO BID tablet predniSONE TAB [PredniSONE] 10 mg PO BID #60 tablet Albuterol/Ipratropium Neb [Duoneb] 3 ml RESP TX RT Q6H #120 vial Clotrimazole Phoenix [Mycelex [place]] 10 mg PO 5X DAILY #13 tablet Pantoprazole Tab [Protonix Tab] 40 mg PO DAILY #30 tablet hydroCHLOROthiazide [Hydrochlorothiazide] 12.5 mg PO DAILY #30 capsule Continue Atorvastatin [Lipitor] 40 mg PO DAILY amLODIPine [Norvasc] 1 tablet PO DAILY Fenofibrate [Tricor] 160 mg PO DAILY Cholecalciferol [Vitamin D3] 1,000 unit PO DAILY Fluoxetine HCl [Prozac] 40 mg PO DAILY traZODone [Desyrel] 100 mg PO BEDTIME Albuterol Sulfate [Proair HFA] 2 puff INH Q4H PRN PRN Reason: Shortness Of Breath/Wheezing Magnesium Chloride [Slow Mag] 1 tablet PO BEDTIME Discontinued Lisinopril [Zestril] 20 mg PO DAILY Montelukast Tab [Singulair Tab] 1 tablet PO DAILY Famotidine 40 mg PO BID Albuterol Sulfate [Ventolin HFA] 2 puffs PO Q6HR - Follow Up or Referral - Forms/Instructions Exam - Constitutional Vitals: Period Temp Pulse Resp BP Sys/Aguirre Pulse Ox Last 24 Hr 97.6 F-98.8 F 76-90 16-20 141-167/61-76 94-99 Discharge Results Procedures and tests throughout hospitalization: Pending Orders 11/12/16 04:00 Theophylline IN AM Labs on day of discharge: Labs from last 24 hours 11/11/16 04:04 Theophylline 9.7 L DS: Provider Date of admission: 11/02/16 16:55 Primary care physician: Eric Alonzo MD Attending physician on admission: Jose Capone MD Consults: 11/03/16 10:46 Consult to Physician [CONS] Routine Comment: reflux worsening breathing;Hx Esx;may need EGD/dil Consulting Provider: Golden Peña Person Notified: Carole Date Notified: 11/03/16 Time Notified: 11:21 11/04/16 10:00 Consult to Physical Therapy [CONS] Routine Reason for Physical Therapy: Other Consult Comment: Moist heat to cervical spine BID Discharging clinician: AMARJIT David
[2016-11-11 10:17] VITALS: BP 155/88
== END 2016-11-11 14:22 | disposition home or self-care (01) | DRG 191 ==
LOC: N.5E 16:55
PROVIDERS: ADMIT Internal Medicine Pulmonary Disease; ATTEND Internal Medicine Pulmonary Disease

== ENCOUNTER 2018-10-20 17:30 | Inpatient (IN) ==
[2018-10-20 18:04] LABS: Basophils # 0.2 10*3/uL (0.0-0.2); Basophils % 1.2 % (0.0-0.8); Eosinophils # 0.5 10*3/uL (0.0-0.87); Eosinophils % 3.6 % (0.00-10.9); Hematocrit 37.7 VOL% (35.7-47.0); Hemoglobin 11.7 GM/DL (12.0-16.0); Immature Granulocytes % 0.5 %; Immature Granulocytes Absolute 0.06 #; Lymphocytes # 4.9 10*3/uL (1.4-4.0); Lymphocytes % 38.3 % (21.3-54.2); Mean Corpuscular Volume 89.8 FL (87-102); Mean Platelet Volume 10.5 FL (9.6-12.0); Monocytes % 7.3 % (1.7-12.7); Neutrophils % 49.1 % (38.7-73.9); Platelet Count 391 T/CUMM (130-400); Red Cell Distribution Width 13.9 % (9.3-17.3); White Blood Count 12.9 T/CUMM (4-12)
[2018-10-20 18:30] LABS: Albumin 3.7 G/DL (3.4-5.0); Bilirubin,Total 0.4 MG/DL (0.2-1.0); Calcium 8.9 MG/DL (8.5-10.1); Osmolality,Calculated 281.4 MOS/KG (273-304); Total Protein 7.1 G/DL (6.4-8.3)
[2018-10-20] MEDS ORDERED: ACETAMINOPHEN 325 MG TABLET PO PRN (20:27)
[2018-10-20] MEDS ORDERED: ONDANSETRON 4 MG/2 ML VIAL IV PRN (20:27)
[2018-10-20] MEDS ORDERED: ASPIRIN 325 MG TABLET PO STA (20:29)
[2018-10-20] MEDS ORDERED: ALBUTEROL/IPRATROPIUM 3 ML NEB RESP TX PRN (20:33)
[2018-10-20] MEDS: ZALEPLON 5 MG CAPSULE PO SCH (21:51)
[2018-10-20] MEDS: MONTELUKAST 10 MG TABLET PO SCH (21:51)
[2018-10-20] MEDS: PROPRANOLOL 20 MG TABLET PO SCH (21:51)
[2018-10-20] MEDS: ENOXAPARIN 40 MG/0.4 ML SYRINGE SUBCUT SCH (21:51)
[2018-10-20] MEDS: ATORVASTATIN 40 MG TABLET PO SCH (21:53)
[2018-10-20] MEDS: SODIUM CHLORIDE 0.9% 1,000 ML IV SCH (23:11)
[2018-10-21 05:51] LABS: Basophils # 0.1 10*3/uL (0.0-0.2); Basophils % 1.2 % (0.0-0.8); Eosinophils # 0.3 10*3/uL (0.0-0.87); Eosinophils % 3.3 % (0.00-10.9); Hematocrit 33.9 VOL% (35.7-47.0); Hemoglobin 10.6 GM/DL (12.0-16.0); Immature Granulocytes % 0.6 %; Immature Granulocytes Absolute 0.06 #; Lymphocytes # 4.2 10*3/uL (1.4-4.0); Lymphocytes % 41.1 % (21.3-54.2); Mean Corpuscular HGB Conc 31.3 GM/DL (32-36); Mean Corpuscular Volume 89.9 FL (87-102); Mean Platelet Volume 11.1 FL (9.6-12.0); Monocytes % 7.8 % (1.7-12.7); Platelet Count 277 T/CUMM (130-400); Red Blood Count 3.77 MC/CUMM (3.8-5.5); Red Cell Distribution Width 13.8 % (9.3-17.3); White Blood Count 10.3 T/CUMM (4-12)
[2018-10-21 06:26] LABS: Bilirubin,Total 0.5 MG/DL (0.2-1.0); Calcium 8.6 MG/DL (8.5-10.1); Thyroid Stimulating Hormone 1.82 uIU/ml (0.358-3.74); Total Protein 6.5 G/DL (6.4-8.3)
[2018-10-21 06:41] LABS: Apearance,Urine CLEAR (Clear); Bilirubin,Urine Negative (Negative); Blood, Urine Negative (Negative); Glucose,Urine (UA) Negative (Negative); Ketones,Urine Negative (Negative); Mucus,Urine Occasional /LPF (Occasional); Nitrite,Urine Negative (Negative); Protein,Urine Negative; RBC,Urine 1 /HPF (0-4); Squamous Epithelial Cell,Urine Occasional /HPF (0-10); Urine Color Straw (Yellow); Urine Specific Gravity 1.028 (1.001-1.035); Urine Urobilinogen < 2.0 EU/DL (0.2-1.0); WBC,Urine 12 /HPF (0-6)
[2018-10-21] MEDS ORDERED: Tiotropium Br/Olodaterol Hcl [Stiolto Respimat Inhal Spray] 4 GM PO SCH (09:00)
[2018-10-21] MEDS: amLODIPine 5 MG TABLET PO SCH (09:30)
[2018-10-21] MEDS: CETIRIZINE 10 MG TABLET PO SCH (09:30)
[2018-10-21] MEDS: hydroCHLOROthiazide 12.5 MG CAPSULE PO SCH (09:31)
[2018-10-21] MEDS: PROPRANOLOL 20 MG TABLET PO SCH ×3 (09:31→20:56)
[2018-10-21] MEDS: PANTOPRAZOLE 40 MG TABLET PO SCH (09:31)
[2018-10-21] MEDS: SODIUM CHLORIDE 0.9% 1,000 ML IV SCH (14:39)
[2018-10-21] MEDS ORDERED: cefTRIAXone 1,000 MG in SYRINGE 1 EACH IV SCH (17:00)
[2018-10-21] MEDS: ENOXAPARIN 40 MG/0.4 ML SYRINGE SUBCUT SCH (20:56)
[2018-10-21] MEDS: ZALEPLON 5 MG CAPSULE PO SCH (20:56)
[2018-10-21] MEDS: MONTELUKAST 10 MG TABLET PO SCH (20:57)
[2018-10-21] MEDS: ATORVASTATIN 40 MG TABLET PO SCH (20:57)
[2018-10-22] MEDS: SODIUM CHLORIDE 0.9% 1,000 ML IV SCH ×2 (00:33→10:40)
[2018-10-22 08:57] VITALS: BP 138/51
[2018-10-22] MEDS: PANTOPRAZOLE 40 MG TABLET PO SCH (10:32)
[2018-10-22] MEDS: CETIRIZINE 10 MG TABLET PO SCH (10:32)
[2018-10-22] MEDS: PROPRANOLOL 20 MG TABLET PO SCH (10:33)
[2018-10-22] MEDS: amLODIPine 5 MG TABLET PO SCH (10:33)
[2018-10-22] MEDS: hydroCHLOROthiazide 12.5 MG CAPSULE PO SCH (10:33)
== END 2018-10-22 10:33 | disposition home or self-care (01) | DRG 313 ==
LOC: N.ED 17:30 → N.EDINP 20:27 → N.TELEN 20:50
PROVIDERS: ADMIT Internal Medicine; ATTEND Internal Medicine